=== PATIENT | female | born 1980 | race Caucasian/White ===

== ENCOUNTER 2019-05-04 06:10 | Inpatient (IN) | payer OTHER ==
--- NOTE | 2019-05-04 08:18 | PDOC ---
History of Present Illness - General Chief Complaint: SIRS, Suspected/Possible Stated Complaint: FEVER Time Seen by Provider: 05/04/19 07:26 History Source: [facility] Records, Other (Aide) Exam Limitations: Clinical Condition - History of Present Illness Initial Comments: 05/04/19 08:05 38F with a PMH of spastic diplegic cerebral palsy, cortical blindness, profound MR, seizures g-tube placement, intellectual disabilities who presents to the ER from [facility] for evaluation of fever and tachycardia. Pt is with aide who helps provide history w/ NH papers. [place] papers state that the patient was febrile and tachycardic but does not state any other complaitns. Pt is nonverbal and cannot provide hx. Past History - Past Medical History Allergies/Adverse Reactions: Allergies Allergy/AdvReac Type Severity Reaction Status Date / Time gentamicin Allergy Verified 05/04/19 06:32 Home Medications: Ambulatory Orders Albuterol 0.083% Nebulizer Luly [Ventolin 0.083% Nebulizer Soln -] 1 neb NEB QID 05/04/19 Albuterol 2.5/Ipratropium 0.5 [Duoneb -] 1 amp NEB BID PRN 05/04/19 Baclofen 1 tab GT BID 05/04/19 Baclofen 15 mg GT BID@1200,1700 05/04/19 Budesonide [Pulmicort 0.5 mg Nebulizer -] 1 neb NEB BID 05/04/19 Diazepam 2 mg GT TID 05/04/19 Lansoprazole [Prevacid] 30 mg GT DAILY 05/04/19 Mag Hydrox/Aluminum Hyd/Simeth [Almacone-2 Liquid] 355 ml GT HS 05/04/19 Montelukast Sodium [Singulair] 10 mg GT DAILY 05/04/19 Phenobarbital 16.2 mg GT HS 05/04/19 Phenobarbital 32.4 mg GT AM 05/04/19 Phenobarbital 129.6 mg PO HS 05/04/19 Polyethylene Glycol 3350 [Glycolax] 119 gm GT BID 05/04/19 Zinc Oxide [Desitin] 60 gm TP BID 05/04/19 Amoxicillin/Potassium Clav [Augmentin 500-125 Tablet] 1 each PO BID #8 tablet Anemia: Yes COPD: No Seizures: Yes Other medical history: cerebal palsy, brain damage, m r, Quadriplegia - Surgical History GI Surgery: Yes (g-tube) - Suicide/Smoking/Psychosocial Hx Smoking History: Never smoked Review of Systems - Review of Systems Able to Perform ROS?: No (nonverbal) *Physical Exam - Vital Signs Last Vital Signs Temp Pulse Resp BP Pulse Ox 100.2 F H 111 H 18 95/50 L 97 05/04/19 06:33 05/04/19 06:33 05/04/19 06:33 05/04/19 06:33 05/04/19 06:33 - Physical Exam Comments: 05/04/19 10:37 GENERAL: Well developed, well nourished. Awake. No acute distress. Nonverbal. HEENT: Normocephalic, atraumatic. Hearing grossly normal. Moist mucous membranes. PERRLA, EOMI. No conjunctival pallor. Sclera are non-icteric. NECK: Contracted to the R. Supple. No JVD. CARDIOVASCULAR: Regular rate and rhythm. No murmurs, rubs, or gallops. PULMONARY: LLL crackles. No evidence of respiratory distress. ABDOMINAL: Soft. Non-tender. Non-distended. No rebound or guarding. MUSCULOSKELETAL: Contracted. Limited range of motion at all joints. No bony deformities or tenderness. EXTREMITIES: No cyanosis. No clubbing. No edema. No calf tenderness or swelling. SKIN: Warm and dry. Normal capillary refill. No rashes. No jaundice. NEUROLOGICAL: Alert, awake, appropriate. Cranial nerves 2-12 grossly intact. Normal speech. Gait is normal without ataxia. PSYCHIATRIC: Cooperative. Good eye contact. Appropriate mood and affect. ED Treatment Course - LABORATORY CBC & Chemistry Diagram: 05/08/19 07:20 05/08/19 07:20 Medical Decision Making - Medical Decision Making 05/04/19 11:43 38F with MMP who presents for evaluation of fever and tachycardia. Pt noted to be hypotensive. Septic workup in progress. IV access established but pt pending blood draw. UA negative. CXR negative. Currently being hydrated, on 2nd L NS, IV tylenol, vanc and zosyn for broad spectrum coverage. Will obtain labs after 2nd liter. Pt noted to be more interactive after tylenol and first fluid bolus. Pt admitted for sepsis. *DC/Admit/Observation/Transfer Diagnosis at time of Disposition: Severe sepsis - Discharge Dispostion Condition at time of disposition: Guarded Decision to Admit order: Yes - Referrals - Patient Instructions - Post Discharge Activity
[2019-05-04] MEDS ORDERED: ACETAMINOPHEN INJECTION 100 ML IVPB ONE (08:42)
--- NOTE | 2019-05-04 08:49 | PDOC ---
Attending Attestation - Resident Resident Name: Emiliano Handley - ED Attending Attestation I have performed the following: I have examined & evaluated the patient, The case was reviewed & discussed with the resident, I agree w/resident's findings & plan, Exceptions are as noted - HPI HPI: 38 yo F history MRCP, blindness, seizure disorder, developmental delay, nonverbal at baseline, presenting from [place] for fever. Patient unable to provide any history. - Physicial Exam PE: GENERAL: Awake, alert, and fully oriented, in no acute distress HEAD: No signs of trauma EYES: PERRLA, EOMI, sclera anicteric, conjunctiva clear ENT: Auricles normal inspection, hearing grossly normal, nares patent, oropharynx clear without exudates. Moist mucosa NECK: Normal ROM, supple, no lymphadenopathy, JVD, or masses LUNGS: Breath sounds equal, clear to auscultation bilaterally. No wheezes, and no crackles HEART: Tachycardic with regular rhythm, normal S1 and S2, no murmurs, rubs or gallops ABDOMEN: Soft, nontender, normoactive bowel sounds. No guarding, no rebound. No masses EXTREMITIES: Normal range of motion, no edema. No clubbing or cyanosis. No cords, erythema, or tenderness NEUROLOGICAL: Moving all extremities. Limited by profound MR. SKIN: Warm, dry, normal turgor, no rashes or lesions noted. - Medical Decision Making Pt presents with sepsis, unknown source. Sepsis protocol initiated. Patient was very difficult IV access, ultimately access was obtained to R EJV, but unable to draw blood. Will hydrate with 2L, then reattempt blood draw.
[2019-05-04] MEDS ORDERED: SODIUM CHLORIDE 0.9% 500 ML INFUS.BAG IV ONE (08:51)
[2019-05-04] MEDS ORDERED: ACETAMINOPHEN 1000 MG/100 ML VIAL (NON FORMULARY) IVPB ONE (08:52)
[2019-05-04] MEDS ORDERED: PIPERACILLIN/TAZOB 4.5 GM 4.5 GM in DEXTROSE 5%-WATER 100 ML IVPB ONE (09:14)
[2019-05-04] MEDS ORDERED: VANCOMYCIN 1,000 MG in DEXTROSE 5%-WATER - 250 ML IVPB ONE (09:14)
[2019-05-04] MEDS ORDERED: VANCOMYCIN 1 GRAM (PRE-DOCKED) 1,000 MG/250 ML BAG IVPB ONE (09:52)
[2019-05-04] MEDS ORDERED: PIPERACILLIN/TAZOB 4.5 GM 4.5 GM/100 ML BAG IVPB ONE (09:52)
[2019-05-04 10:19] LABS: URINE APPEARANCE Clear; URINE BILIRUBIN Negative (NEGATIVE); URINE COLOR Yellow; URINE GLUCOSE (UA) Negative (NEGATIVE); URINE KETONE Negative (NEGATIVE); URINE LEUK ESTERASE Negative (NEGATIVE); URINE NITRITE Negative (NEGATIVE); URINE PROTEIN Negative (NEGATIVE); URINE UROBILINOGEN 0.2 mg/dL (0.2-1.0)
[2019-05-04] MEDS ORDERED: SODIUM CHLORIDE 0.9% 1000 ML INFUS.BAG IV ONE (10:39)
[2019-05-04 11:39] LABS: BASO % 0.3 % (0-2.0); EOS % 1.5 % (0-4.5); HEMATOCRIT 30.1 % (32.4-45.2); HEMOGLOBIN 9.5 GM/dL (10.7-15.3); LYMPH % 10.3 % (8-40); MCH 24.7 pg (25.7-33.7); MCHC 31.5 g/dl (32.0-36.0); MEAN CELL VOLUME 78.3 fl (80-96); MEAN PLT VOLUME 9.2 fl (7.5-11.1); MONO % 6.3 % (3.8-10.2); NEUT % 81.6 % (42.8-82.8); PLATELET COUNT 277 K/MM3 (134-434); RBC 3.84 M/mm3 (3.60-5.2); RDW 15.5 % (11.6-15.6); WHITE BLOOD COUNT 14.2 K/mm3 (4.0-10.0)
[2019-05-04 13:53] LABS: VENOUS PC02 38.1 mmHg (38-52); VENOUS PH 7.39 (7.31-7.41)
[2019-05-04 14:19] LABS: ALBUMIN 2.6 g/dl (3.4-5.0); ALK PHOS 114 U/L (45-117); ANION GAP 5 MMOL/L (8-16); BILIRUBIN,TOTAL 0.2 mg/dL (0.2-1); CALCIUM 7.4 mg/dL (8.5-10.1); CHLORIDE 114 mmol/L (98-107); CO2 24 mmol/L (21-32); CREATININE 0.3 mg/dL (0.55-1.3); GLUCOSE,RANDOM 126 mg/dL (74-106); INR 1.2 (0.83-1.09); POTASSIUM 3.4 mmol/L (3.5-5.1); PROTHROMBIN TIME (PATIENT) 14.2 SEC (9.7-13.0); SGOT/AST 26 U/L (15-37); SGPT/ALT 41 U/L (13-61); SODIUM 143 mmol/L (136-145); TOT PROT 5.5 g/dl (6.4-8.2)
--- NOTE | 2019-05-04 16:09 | HP ---
CHIEF COMPLAINT: SIRS+ PCP: Dr. Boles ([facility]) HISTORY OF PRESENT ILLNESS: 38 y/o F with PMHx of Epilepsy, Spastic diplegic cerebral palsy, cortical blindness, Asthma, congenital L hip dislocation, Constipation, Acne vulgaris, alopecia, cholelithiasis, fibroadenosis of the breast, Pneumonitis, Iron def anemia, Gastric ulcer, anoxic brain injury presents from [facility] for fever of 102 degrees, tachycardia to 115. Patient is nonverbal and unable to provide HPI, Aid at bedside provided paperwork but is not the routine director day care center of the patient, thus was unable to provide a detailed hx. Case was discussed with Nurse (Alda Vanegas RN) at [facility] who mentions the patient did not fever during the day and was in her usual state of health, tolerating G- Tube feeds and having regular bowel movements. She mentions that after midnight , a fever and tachycardia were noted prompting a visit to the ED. Nurse mentions hx of aspiration pna requiring hospitalization in [facility]. ER course was notable for: (1) NS 2L Bolus (2) Vanco/Zosyn/Ofirmev (3) Blood Cx/Flu Swab/CXR Recent Travel: PAST MEDICAL HISTORY: As Above PAST SURGICAL HISTORY: G-Tube placement R femur fx repair Social History: Smoking: Denies (As per RN at [facility]) Alcohol: Denies (As per RN at [facility]) Drugs: Denies (As per RN at [facility]) Family History: Patient is nonverbal; RN at [facility] denies FHx Allergies gentamicin Allergy (Verified 05/04/19 06:32) HOME MEDICATIONS: REVIEW OF SYSTEMS Unable to obtain as patient is nonverbal PHYSICAL EXAMINATION Vital Signs - 24 hr 05/04/19 05/04/19 05/04/19 06:33 08:41 14:09 Temperature 100.2 F H 98 F Pulse Rate 111 H 106 H Pulse Rate [ 86 Apical] Respiratory 18 16 Rate Blood Pressure 95/50 L Blood Pressure 92/64 [Left Arm] O2 Sat by Pulse 97 97 94 L Oximetry (%) GENERAL: Awake, alert, Nonverbal NAD, Sitting comfortably looking around the room and smiling HEAD: NCAT EYES: PERRL ENT: MMM NECK: Supple LUNGS: Diminished breath sounds at the bases with significant upper airway noise HEART: RRR, S1 S2 ABDOMEN: Soft, does not grimace to palpation, not distended, + bowel sounds, GTube intact without surrounding erythema/drainage MUSCULOSKELETAL: Limbs contracted EXTREMITIES: 2+ pulses, No peripheral edema. NEUROLOGICAL: Awake, looking around smiling SKIN: Warm, dry, No ulceration noted over posterior back skin Laboratory Results - last 24 hr 05/04/19 05/04/19 05/04/19 09:40 11:24 13:21 WBC 14.2 H RBC 3.84 Hgb 9.5 L Hct 30.1 L MCV 78.3 L MCH 24.7 L MCHC 31.5 L RDW 15.5 Plt Count 277 MPV 9.2 Absolute Neuts (auto) 11.6 H Neutrophils % 81.6 Lymphocytes % 10.3 Monocytes % 6.3 Eosinophils % 1.5 Basophils % 0.3 Nucleated RBC % 0 PT with INR INR PTT (Actin FS) VBG pH POC VBG pCO2 POC VBG pO2 VBG HCO3 VBG O2 Sat (Richie) VBG Base Excess Sodium 143 Potassium 3.4 L Chloride 114 H Carbon Dioxide 24 Anion Gap 5 L BUN 6.0 L Creatinine 0.3 L Est GFR (CKD-EPI)AfAm 168.34 Est GFR (CKD-EPI)NonAf 145.24 Random Glucose 126 H Lactic Acid Calcium 7.4 L Total Bilirubin 0.2 AST 26 ALT 41 Alkaline Phosphatase 114 Creatine Kinase 20 L Troponin I < 0.02 Total Protein 5.5 L Albumin 2.6 L Urine Color Yellow Urine Appearance Clear Urine pH 7.0 Ur Specific [place] 1.015 Urine Protein Negative Urine Glucose (UA) Negative Urine Ketones Negative Urine Blood Negative Urine Nitrite Negative Urine Bilirubin Negative Urine Urobilinogen 0.2 Ur Leukocyte Esterase Negative Influenza A (Rapid) Influenza B (Rapid) 05/04/19 05/04/19 05/04/19 13:21 13:21 13:21 WBC RBC Hgb Hct MCV MCH MCHC RDW Plt Count MPV Absolute Neuts (auto) Neutrophils % Lymphocytes % Monocytes % Eosinophils % Basophils % Nucleated RBC % PT with INR 14.20 H INR 1.20 H PTT (Actin FS) 32.0 VBG pH 7.39 POC VBG pCO2 38.1 POC VBG pO2 70.0 H VBG HCO3 22.6 L VBG O2 Sat (Richie) 93.3 H VBG Base Excess -1.5 Sodium Potassium Chloride Carbon Dioxide Anion Gap BUN Creatinine Est GFR (CKD-EPI)AfAm Est GFR (CKD-EPI)NonAf Random Glucose Lactic Acid 0.6 Calcium Total Bilirubin AST ALT Alkaline Phosphatase Creatine Kinase Troponin I Total Protein Albumin Urine Color Urine Appearance Urine pH Ur Specific [place] Urine Protein Urine Glucose (UA) Urine Ketones Urine Blood Urine Nitrite Urine Bilirubin Urine Urobilinogen Ur Leukocyte Esterase Influenza A (Rapid) Influenza B (Rapid) 05/04/19 13:21 WBC RBC Hgb Hct MCV MCH MCHC RDW Plt Count MPV Absolute Neuts (auto) Neutrophils % Lymphocytes % Monocytes % Eosinophils % Basophils % Nucleated RBC % PT with INR INR PTT (Actin FS) VBG pH POC VBG pCO2 POC VBG pO2 VBG HCO3 VBG O2 Sat (Richie) VBG Base Excess Sodium Potassium Chloride Carbon Dioxide Anion Gap BUN Creatinine Est GFR (CKD-EPI)AfAm Est GFR (CKD-EPI)NonAf Random Glucose Lactic Acid Calcium Total Bilirubin AST ALT Alkaline Phosphatase Creatine Kinase Troponin I Total Protein Albumin Urine Color Urine Appearance Urine pH Ur Specific [place] Urine Protein Urine Glucose (UA) Urine Ketones Urine Blood Urine Nitrite Urine Bilirubin Urine Urobilinogen Ur Leukocyte Esterase Influenza A (Rapid) Negative Influenza B (Rapid) Negative Active Medications Albuterol Sulfate (Ventolin 0.083% Nebulizer Soln -) 1 amp NEB QID RACH Albuterol/Ipratropium (Duoneb -) 1 amp NEB BID PRN PRN Reason: SHORT OF BREATH/WHEEZING Baclofen (Lioresal -) 10 mg GT BID RACH Budesonide (Pulmicort 0.5 Mg Nebulizer -) 1 amp NEB BID RACH Diazepam (Valium -) 2 mg GT TID RACH Lactated Ringer's (Lactated Ringers Solution) 1,000 ml in 1,000 mls @ 100 mls/ hr IV ASDIR RACH Last Admin: 05/04/19 18:14 Dose: 100 mls/hr Piperacillin Sod/Tazobactam (Sod 3.375 gm/ Dextrose) 50 mls @ 100 mls/hr IVPB Q8H-IV RACH; Protocol Piperacillin Sod/Tazobactam (Sod 3.375 gm/ Dextrose) 50 mls @ 100 mls/hr IVPB Q8H-IV RACH; Protocol Stop: 05/05/19 10:29 Last Admin: 05/04/19 18:14 Dose: 100 mls/hr Montelukast Sodium (Singulair -) 10 mg GT DAILY RACH Non-Formulary Medication (Baclofen [Baclofen]) 15 mg GT BID@1200,1700 RACH Non-Formulary Medication (Lansoprazole [Prevacid]) 30 mg GT DAILY RACH Non-Formulary Medication (Mag Hydrox/Aluminum Hyd/Simeth [Almacone-2 Liquid]) 355 ml GT HS RACH Non-Formulary Medication (Phenobarbital [Phenobarbital]) 129.6 mg PO HS RACH Non-Formulary Medication (Zinc Oxide [Desitin]) 60 gm TP BID RACH Phenobarbital (Phenobarbital -) 32.4 mg GT AM RACH Phenobarbital (Phenobarbital Liquid -) 16.2 mg GT HS RACH Vancomycin HCl (Vancomycin (Pre-Docked)) 1,000 mg IVPB DAILY RACH; Protocol Vancomycin HCl (Vancomycin (Pre-Docked)) 1,000 mg IVPB DAILY RACH; Protocol Stop: 05/05/19 10:01 IMAGING: -CXR: A single AP view of the chest reveals an elevated right hemidiaphragm with distended bowel below, rotation to the right with weak inspiration and congestive changes with some questionable atelectasis at the right base. Correlation recommended. ASSESSMENT/PLAN: 38 y/o F with PMHx of Epilepsy, Spastic diplegic cerebral palsy, cortical blindness, Asthma, congenital L hip dislocation, Constipation, Acne vulgaris, alopecia, cholelithiasis, fibroadenosis of the breast, Pneumonitis, Iron def anemia, Gastric ulcer, anoxic brain injury presents from [facility] for fever of 102 degrees, tachycardia to 115. #SIRS+ -Temp at NH 100.2, HR 115; Afebrile in ED with tachycardia resolved -Unclear etiology; CXR does not reveal aspiration or infiltrate, UA not suggestive of UTI, Influenza negative -Blood/sputum/Urine cx pending -Continue Vancomycin 1g Daily, Piperacillin/Tazobactam 3.375 Q8H -Ofirmev -IV Hydration via NS @ 100 mls/hr -Continue to monitor vital signs q4h for signs of infection -ID (Dr. Andre) Consulted -Check BNP, RSV, CRP -Hold GTube feeds due to concern for aspiration pna #Hx of Epilepsy -Continue home meds; Will check levels if any seizure activity noted -Seizure precautions #Hx of Asthma -Continue home dose bronchodilators #FEN -NS @ 100 -Lytes wnl, Replete PRN -Dietary consulted for G-Tube recommendations; No prior G-Tube rec's to compare to #PPx -DVT: Heparin BID Dispo: Admit to med-surg Visit type - Emergency Visit Emergency Visit: Yes ED Registration Date: 05/04/19 Care time: The patient presented to the Emergency Department on the above date and was hospitalized for further evaluation of their emergent condition. - New Patient This patient is new to me today: Yes Date on this admission: 05/07/19 - Critical Care Critical Care patient: No ATTENDING PHYSICIAN STATEMENT I saw and evaluated the patient. I reviewed the resident's note and discussed the case with the resident. I agree with the resident's findings and plan as documented. SUBJECTIVE: OBJECTIVE: ASSESSMENT AND PLAN:
--- NOTE | 2019-05-04 16:19 | PN ---
Teaching Attending Note Name of Resident: Mariam Lim ATTENDING PHYSICIAN STATEMENT I saw and evaluated the patient. I reviewed the resident's note and discussed the case with the resident. I agree with the resident's findings and plan as documented. Seen and examined; please see resident note for further historical information. Hx aspiration recetnly at OSH for aspiration PNA, records pending. She has a PMHx of Epilepsy, Spastic diplegic cerebral palsy, cortical blindness, Asthma, congenital L hip dislocation, Constipation, Acne vulgaris, alopecia, cholelithiasis, fibroadenosis of the breast, Pneumonitis, Iron def anemia, Gastric ulcer, anoxic brain injury presents from [facility] for fever of 102 degrees, tachycardia to 115. Couldnt obtain ROS PMH/PSH/FH/SH per resident note VS, labs, imaging reviewed NAD, supplemental O2, not agitated Trachea midline, no LN Neurological exam difficult without presentation; moves extremities and apparent intact sensorium Abdomen not appearing tender, +BS Couldn't do full psych exam CXR pending CT pending Consults pending (pulmonary, ID) ASSESSMENT AND PLAN: Patient with complex PMH facility resident with PMH aspiration PNA at OSH presents with sepsis assumed 2/2 respiratory source. # Sepsis # Hx aspiration PNA # Hx Epilepsy (Continue all home meds once verified with facility; done by resident. Seizure precautions while inpatient) # Hx Spastic CP with cortical blindness # Hx Asthma (consider steroids, defer to pulmonary) # Hx Constipation # Hx Cholelithiasis (checking RUQ US to r/o biliary contribution given known stones per chart) Broad spectrum abx, fluids, hold feeds overnight and obtain nutrition recs, followup pulmopnary and ID Code status to be verified with facility
[2019-05-04] MEDS ORDERED: PIPERACILLIN/TAZOB 3.375 GM 3.375 GM in DEXTROSE 5%-WATER - 50 ML IVPB SCH (18:00)
[2019-05-04] MEDS: PIPERACILLIN/TAZOB 3.375 GM 3.375 GM in DEXTROSE 5%-WATER - 50 ML IVPB SCH (18:14)
[2019-05-04] MEDS: LACTATED RINGERS SOLUTION 1,000 ML/1,000 ML INFUS.BAG IV SCH (18:14)
[2019-05-04] MEDS ORDERED: PIPERACILLIN/TAZOB 3.375 GM 3.375 GM/50 ML BAG IVPB ONE ×2 (18:15→18:18)
[2019-05-04] MEDS ORDERED: ALBUTEROL SO4 2.5/IPRATROPIUM 0.5 INH SOL 3 ML VIAL.NEB. NEB PRN (19:11)
[2019-05-04 20:36] LABS: N-TERMINAL BNP 162.7 pg/ml (5-125)
[2019-05-04] MEDS ORDERED: BUDESONIDE 0.5 MG/2 ML INH SUSP VIAL NEB SCH (22:00)
[2019-05-04] MEDS ORDERED: PHENOBARBITAL 20 MG/5 ML LIQUID GT SCH (22:00)
[2019-05-04] MEDS ORDERED: PHENOBARBITAL 129.6 MG PO SCH (22:00)
[2019-05-05] MEDS: HEPARIN NA (PORCINE) 5,000 UNITS/ML 1ML VIAL SQ SCH ×3 (00:33→23:12)
[2019-05-05] MEDS: RANITIDINE HCL 150 MG/10 ML UNIT-DOSE GT SCH ×3 (00:33→23:14)
[2019-05-05] MEDS: diazePAM 2 MG TABLET GT SCH ×4 (00:33→23:13)
[2019-05-05] MEDS: BACLOFEN 10 MG TABLET (FP) GT SCH ×3 (00:33→23:13)
[2019-05-05] MEDS: ZINC OXIDE 20% TOPICAL OINTMENT 30 GM TUBE TP SCH ×3 (00:34→23:14)
[2019-05-05] MEDS: PIPERACILLIN/TAZOB 3.375 GM 3.375 GM in DEXTROSE 5%-WATER - 50 ML IVPB SCH ×4 (02:35→17:12)
[2019-05-05] MEDS ORDERED: PHENobarbital 30 MG TABLET GT SCH ×2 (07:00→23:30)
[2019-05-05] MEDS: ALBUTEROL SO4 0.083% IH SOL 2.5 MG/3 ML VIAL.NEB. NEB SCH ×4 (08:24→21:20)
[2019-05-05] MEDS: BUDESONIDE 0.5 MG/2 ML INH SUSP VIAL NEB SCH ×2 (08:24→21:20)
[2019-05-05 08:51] LABS: BASO % 0.7 % (0-2.0); EOS % 6.8 % (0-4.5); HEMATOCRIT 32.6 % (32.4-45.2); HEMOGLOBIN 10.2 GM/dL (10.7-15.3); LYMPH % 21.5 % (8-40); MCH 24.7 pg (25.7-33.7); MCHC 31.3 g/dl (32.0-36.0); MEAN CELL VOLUME 78.8 fl (80-96); MEAN PLT VOLUME 8.9 fl (7.5-11.1); MONO % 6.6 % (3.8-10.2); NEUT % 64.4 % (42.8-82.8); PLATELET COUNT 306 K/MM3 (134-434); RBC 4.14 M/mm3 (3.60-5.2); RDW 15.9 % (11.6-15.6); WHITE BLOOD COUNT 7.3 K/mm3 (4.0-10.0)
[2019-05-05 09:15] LABS: BILIRUBIN,TOTAL 0.2 mg/dL (0.2-1); BLOOD UREA NITROGEN 5.7 mg/dL (7-18); CALCIUM 8.1 mg/dL (8.5-10.1); CREATININE 0.3 mg/dL (0.55-1.3); MAGNESIUM 2.9 mg/dL (1.8-2.4); POTASSIUM 3.8 mmol/L (3.5-5.1); TOT PROT 6.1 g/dl (6.4-8.2)
--- NOTE | 2019-05-05 09:58 | CON.ID ---
Consult Consult Specialty:: infectious diseases Referred by:: Reason for Consultation:: fever,tachycardia,pna - History of Present Illness Chief Complaint: fever History of Present Illness: patient is non verbal from [facility],unable to give history which is taken from the charts 38 y/o F with PMHx of Epilepsy, Spastic diplegic cerebral palsy, cortical blindness, Asthma, congenital L hip dislocation, Constipation, Acne vulgaris, alopecia, cholelithiasis, fibroadenosis of the breast, Pneumonitis, Iron def anemia, Gastric ulcer, anoxic brain injury presents from [facility] for fever of 102 degrees, tachycardia to 115. Case was discussed with Nurse (Alda Vanegas RN) at [facility] who mentions the patient did not fever during the day and was in her usual state of health, tolerating G-Tube feeds and having regular bowel movements. She mentions that after midnight, a fever and tachycardia were noted prompting a visit to the ED. Nurse mentions hx of aspiration pna requiring hospitalization in [facility]. - History Source History Provided By: Medical Record Limitations to Obtaining History: Clinical Condition - Alcohol/Substance Use Hx Alcohol Use: No - Smoking History Smoking history: Never smoked Home Medications - Allergies Allergies/Adverse Reactions: Allergies Allergy/AdvReac Type Severity Reaction Status Date / Time gentamicin Allergy Verified 05/04/19 06:32 - Home Medications Home Medications: Ambulatory Orders Albuterol 0.083% Nebulizer Luly [Ventolin 0.083%] 1 neb NEB QID 05/04/19 Albuterol 2.5/Ipratropium 0.5 [Duoneb -] 1 amp NEB BID PRN 05/04/19 Baclofen 1 tab GT BID 05/04/19 Baclofen 15 mg GT BID@1200,1700 05/04/19 Budesonide [Pulmicort 0.5 mg Nebulizer -] 1 neb NEB BID 05/04/19 Diazepam 2 mg GT TID 05/04/19 Lansoprazole [Prevacid] 30 mg GT DAILY 05/04/19 Mag Hydrox/Aluminum Hyd/Simeth [Almacone-2 Liquid] 355 ml GT HS 05/04/19 Montelukast Sodium [Singulair] 10 mg GT DAILY 05/04/19 Phenobarbital 16.2 mg GT HS 05/04/19 Phenobarbital 32.4 mg GT AM 05/04/19 Phenobarbital 129.6 mg PO HS 05/04/19 Polyethylene Glycol 3350 [Glycolax] 119 gm GT BID 05/04/19 Zinc Oxide [Desitin] 60 gm TP BID 05/04/19 Review of Systems Unable to obtain ROS, reason: unable to obtain Physical Exam Vital Signs: Vital Signs Temperature 98.7 F 05/05/19 06:00 Pulse Rate 97 H 05/05/19 06:00 Respiratory Rate 17 05/05/19 06:00 Blood Pressure 134/71 05/05/19 06:00 O2 Sat by Pulse Oximetry (%) 98 05/04/19 23:00 Constitutional: Yes: No Distress, Calm Cardiovascular: Yes: Regular Rate and Rhythm, S1 Respiratory: Yes: On Nasal O2, Poor Air Entry, Rhonchi Gastrointestinal: Yes: Normal Bowel Sounds, Soft, Other (peg) Musculoskeletal: Yes: WNL Extremities: Yes: Other Neurological: Yes: Alert, Other Psychiatric: Yes: Other Labs: CBC, BMP 05/05/19 08:40 05/05/19 08:40 Imaging - Results Chest X-ray: Report Reviewed, Image Reviewed Assessment/Plan 38 y/o F with PMHx of Epilepsy, Spastic diplegic cerebral palsy, cortical blindness, Asthma, congenital L hip dislocation, Constipation, Acne vulgaris, alopecia, cholelithiasis, fibroadenosis of the breast, Pneumonitis, Iron def anemia, Gastric ulcer, anoxic brain injury presents from [facility] for fever of 102 degrees, tachycardia to 115. sepsis leukocytosis fever asthma plan continue zosyn nutrition asp precautions monitor fever rest as per the team
[2019-05-05] MEDS ORDERED: VANCOMYCIN 1 GM in D5W (PRE-DOCKED) 1,000 MG/250 ML IVPB SCH (10:00)
[2019-05-05] MEDS ORDERED: DEXTROSE 5%-WATER - 50 ML IVPB ONE ×2 (11:00→17:08)
[2019-05-05] MEDS ORDERED: PIPERACILLIN/TAZOBACTAM 3.375 GM VIAL IVPB ONE ×2 (11:00→17:08)
--- NOTE | 2019-05-05 11:14 | CON.PULM ---
Consult Consult Specialty:: PULMONARY Referred by:: PMD Reason for Consultation:: FEVER/ABN CXR - History of Present Illness History of Present Illness: 38F with a PMH of spastic diplegic cerebral palsy, cortical blindness, profound MR, seizures g-tube placement, who presents to the ER from [facility] for evaluation of fever and tachycardia. Pt is with aide who helps provide limited history. Transfer papers state that the patient was febrile and tachycardic. Pt is nonverbal and cannot provide hx. - History Source History Provided By: Medical Record Limitations to Obtaining History: Clinical Condition - Past Medical History CLAIM INVESTIGATOR: Yes: Other (cerebral palsy) Cardio/Vascular: No: AFIB Pulmonary: No: O2 Dependent Gastrointestinal: No: Cancer Hepatobiliary: No: Cirrhosis Renal/: No: Renal Failure ...: No Heme/Onc: Yes: Anemia - Alcohol/Substance Use Hx Alcohol Use: No - Smoking History Smoking history: Never smoked - Social History Usual Living Arrangement: [facility] ADL: Support Services Place of : [facility] History of Recent Travel: No Home Medications - Allergies Allergies/Adverse Reactions: Allergies Allergy/AdvReac Type Severity Reaction Status Date / Time gentamicin Allergy Verified 05/04/19 06:32 - Home Medications Home Medications: Ambulatory Orders Albuterol 0.083% Nebulizer Luly [Ventolin 0.083%] 1 neb NEB QID 05/04/19 Albuterol 2.5/Ipratropium 0.5 [Duoneb -] 1 amp NEB BID PRN 05/04/19 Baclofen 1 tab GT BID 05/04/19 Baclofen 15 mg GT BID@1200,1700 05/04/19 Budesonide [Pulmicort 0.5 mg Nebulizer -] 1 neb NEB BID 05/04/19 Diazepam 2 mg GT TID 05/04/19 Lansoprazole [Prevacid] 30 mg GT DAILY 05/04/19 Mag Hydrox/Aluminum Hyd/Simeth [Almacone-2 Liquid] 355 ml GT HS 05/04/19 Montelukast Sodium [Singulair] 10 mg GT DAILY 05/04/19 Phenobarbital 16.2 mg GT HS 05/04/19 Phenobarbital 32.4 mg GT AM 05/04/19 Phenobarbital 129.6 mg PO HS 05/04/19 Polyethylene Glycol 3350 [Glycolax] 119 gm GT BID 05/04/19 Zinc Oxide [Desitin] 60 gm TP BID 05/04/19 Family Disease History - Family Disease History Family History: Unable to Obtain Review of Systems Unable to obtain ROS, reason: unable to obtain Physical Exam Vital Sings: Vital Signs Temperature 97.3 F L 05/05/19 10:00 Pulse Rate 82 05/05/19 10:00 Respiratory Rate 18 05/05/19 10:00 Blood Pressure 95/62 05/05/19 10:00 O2 Sat by Pulse Oximetry (%) 98 05/04/19 23:00 Constitutional: Yes: No Distress Eyes: Yes: Conjunctiva Clear HENT: Yes: Atraumatic Neck: No: Thyromegaly Cardiovascular: Yes: Regular Rate and Rhythm, S1, S2 Respiratory: Yes: Diminished (right base) Gastrointestinal: Yes: Soft Musculoskeletal: Yes: Other (spastic) Edema: No Labs: CBC, BMP 05/05/19 08:40 05/05/19 08:40 Imaging - Results Chest X-ray: Report Reviewed, Image Reviewed Problem List - Problems (1) Fever Code(s): R50.9 - FEVER, UNSPECIFIED (2) Cerebral palsy Code(s): G80.9 - CEREBRAL PALSY, UNSPECIFIED (3) Tachycardia Code(s): R00.0 - TACHYCARDIA, UNSPECIFIED (4) Blindness Code(s): H54.7 - UNSPECIFIED VISUAL LOSS Assessment/Plan PANCULTURE DIFFICULT TO R/O INFILTRATE ON BASELINE ABNORMAL CXR O2 TO KEEP SAT GREATER THAN 90% UNABLE TO OBTAIN FINGER O2 SAT CONTINUE BASELINE MEDS FOR NOW Carlos VELEZ MD
[2019-05-05] MEDS: LACTATED RINGERS SOLUTION 1,000 ML/1,000 ML INFUS.BAG IV SCH ×2 (11:34→17:12)
[2019-05-05] MEDS: MONTELUKAST NA 10 MG TABLET GT SCH (11:35)
[2019-05-05] MEDS ORDERED: BACLOFEN GT SCH (12:00)
[2019-05-05 14:44] VITALS: BMI 25.2
--- NOTE | 2019-05-05 16:42 | PN ---
Physical Exam: SUBJECTIVE: Patient seen and examined; noted results of pulmonary and ID consults. Continue abx, was weaned to 3L via NC by Dr. Morales this AM. Hemodynamics stable (soft BP but pt. is ~90lbs with normal HR; will try child- sized cuff). Monitoring on floor. Discussed phenobarb dosing with pharmacy and changing orders to their recs; checking phenobarb tox lab per recs. Appreciated. ROS couldn't be reliably obtained due to clinical condition. OBJECTIVE: Vital Signs Period Temp Pulse Resp BP Sys/Waters Pulse Ox Last 24 Hr 96.9 F-98.7 F 75-97 17-20 86-134/55-76 95-98 Patient is awake and alert, mentation at baseline NC AT EOMI PERRLA Trachea midline; no LN, no JVD +BS, difficult to tell if tender but doesn't appear to be very uncomfortable. No neurological changes, no agitation noted Skin exam unchanged with no new rashes or breakdown Lungs with poor effort, ? transmitted upper sounds vs. mild rales RRR s1/2 Laboratory Results - last 24 hr 05/04/19 05/05/19 05/05/19 13:21 08:40 08:40 WBC 7.3 RBC 4.14 Hgb 10.2 L Hct 32.6 MCV 78.8 L MCH 24.7 L MCHC 31.3 L RDW 15.9 H Plt Count 306 MPV 8.9 Absolute Neuts (auto) 4.7 Neutrophils % 64.4 D Lymphocytes % 21.5 D Monocytes % 6.6 Eosinophils % 6.8 H D Basophils % 0.7 Nucleated RBC % 0 Sodium 143 144 Potassium 3.4 L 3.8 Chloride 114 H 114 H Carbon Dioxide 24 22 Anion Gap 5 L 8 BUN 6.0 L 5.7 L Creatinine 0.3 L 0.3 L Est GFR (CKD-EPI)AfAm 168.34 168.34 Est GFR (CKD-EPI)NonAf 145.24 145.24 Random Glucose 126 H 79 Calcium 7.4 L 8.1 L Magnesium 2.9 H Total Bilirubin 0.2 0.2 AST 26 22 ALT 41 39 Alkaline Phosphatase 114 114 Creatine Kinase 20 L Troponin I < 0.02 C-Reactive Protein 13.3 H B-Natriuretic Peptide 162.7 H Total Protein 5.5 L 6.1 L Albumin 2.6 L 3.0 L Active Medications Generic Name Dose Route Start Last Admin Trade Name Freq PRN Reason Stop Dose Admin Albuterol Sulfate 1 amp 05/05/19 08:00 05/05/19 11:32 Ventolin 0.083% Nebulizer Soln - NEB 1 amp RQID RACH Administration Albuterol/Ipratropium 1 amp 05/04/19 19:11 Duoneb - NEB Q12H PRN SHORT OF BREATH/WHEEZING Baclofen 10 mg 05/04/19 22:00 05/05/19 11:35 Lioresal - GT 10 mg BID RACH Administration Budesonide 1 amp 05/05/19 08:00 05/05/19 08:24 Pulmicort 0.5 Mg Nebulizer - NEB 1 amp RBID RACH Administration Diazepam 2 mg 05/04/19 22:00 05/05/19 14:04 Valium - GT 2 mg TID RACH Administration Heparin Sodium (Porcine) 5,000 unit 05/04/19 22:00 05/05/19 11:37 Heparin - SQ 5,000 unit BID RACH Administration Piperacillin Sod/Tazobactam 50 mls @ 100 mls/hr 05/05/19 10:15 05/05/19 11:36 Sod 3.375 gm/ Dextrose IVPB 100 mls/hr Q8H-IV RACH Administration Protocol Lactated Ringer's 1,000 ml in 1,000 mls @ 75 mls/hr 05/05/19 16:22 Lactated Ringers Solution IV ASDIR RACH Montelukast Sodium 10 mg 05/05/19 10:00 05/05/19 11:35 Singulair - GT 10 mg DAILY RACH Administration Multi-Ingredient Ointment 1 applic 05/04/19 22:00 05/05/19 11:35 Zinc Oxide TP 1 applic BID RACH Administration Non-Formulary Medication 355 ml 05/04/19 22:00 Mag Hydrox/Aluminum Hyd/Simeth [Almacone-2 Liquid] GT HS RACH Non-Formulary Medication 129.6 mg 05/04/19 22:00 Phenobarbital [Phenobarbital] PO HS RACH Phenobarbital 32.4 mg 05/05/19 07:00 Phenobarbital - GT AM RACH Phenobarbital 16.2 mg 05/04/19 22:00 Phenobarbital Liquid - GT HS RACH Ranitidine HCl 150 mg 05/04/19 22:00 05/05/19 11:35 Zantac Oral Solution - GT 150 mg BID RACH Administration CT pending Abd US pending ASSESSMENT/PLAN: Patient presents from facility with sepsis with presumed pulmonary origin, r/o GI origin as history of gallstones. Cultures pending; ID and pulmonary medicine following. # Sepsis (Continue LR, abx per ID with zosyn, and followup cultures. Followup CT chest and abd US) # Hx aspiration PNA (followup chest CT to r/o source, CXR result noted) # Hx Epilepsy (Continue all home meds once verified with facility; done by resident. Seizure precautions while inpatient. Phenobarb recs completed per pharmacy) # Hx Spastic CP with cortical blindness (At baseline; cannot provide history) # Hx Asthma (consider steroids, defer to pulmonary) # Hx Constipation # Hx Cholelithiasis (checking RUQ US to r/o biliary contribution given known stones per chart) *Checking ABG as issue getting SpO2 on finger sensor. *Feed orders placed per dietary recs. Code status unchanged Visit type - Emergency Visit Emergency Visit: No - New Patient This patient is new to me today: No - Critical Care Critical Care patient: No
[2019-05-05 19:10] LABS: ARTERIAL BLD GAS O2 SATURATION 98.4 % (95-98); ARTERIAL BLOOD GAS BASE EXCESS -3.9 meq/l (-2-2); ARTERIAL BLOOD GAS PCO2 35.5 mmHg (35-45); ARTERIAL BLOOD GAS PO2 108 mmHg (80-100); ARTERIAL BLOOD GAS pH 7.37 (7.35-7.45)
[2019-05-05 19:25] LABS: ALLENS TEST POSITIVE
[2019-05-05] MEDS ORDERED: PHENYTOIN ORAL SUSP 125 MG/5 ML GT SCH (22:00)
[2019-05-05] MEDS ORDERED: PHENobarbital 30 MG TABLET PO SCH (23:30)
[2019-05-05] MEDS: PHENobarbital 30 MG TABLET GT SCH (23:30)
[2019-05-06] MEDS ORDERED: PIPERACILLIN/TAZOBACTAM 3.375 GM VIAL IVPB ONE ×3 (01:27→17:20)
[2019-05-06] MEDS ORDERED: DEXTROSE 5%-WATER - 50 ML IVPB ONE ×3 (01:28→17:20)
[2019-05-06] MEDS: PIPERACILLIN/TAZOB 3.375 GM 3.375 GM in DEXTROSE 5%-WATER - 50 ML IVPB SCH ×3 (02:16→17:30)
[2019-05-06] MEDS: PHENobarbital 30 MG TABLET GT SCH ×2 (06:14→21:24)
[2019-05-06] MEDS: diazePAM 2 MG TABLET GT SCH ×3 (06:14→21:23)
[2019-05-06] MEDS ORDERED: PHENYTOIN ORAL SUSP 125 MG/5 ML GT SCH (07:00)
[2019-05-06] MEDS: LACTATED RINGERS SOLUTION 1,000 ML/1,000 ML INFUS.BAG IV SCH (07:04)
[2019-05-06] MEDS: BUDESONIDE 0.5 MG/2 ML INH SUSP VIAL NEB SCH ×2 (07:20→19:33)
[2019-05-06] MEDS: ALBUTEROL SO4 0.083% IH SOL 2.5 MG/3 ML VIAL.NEB. NEB SCH ×4 (07:20→19:33)
[2019-05-06] MEDS ORDERED: MAG HYDROX/AL HYDROX/SIMETH 30 ML UNIT-DOSE CUP GT PRN (09:15)
[2019-05-06] MEDS: BACLOFEN 10 MG TABLET (FP) GT SCH ×2 (09:17→21:23)
[2019-05-06] MEDS: MONTELUKAST NA 10 MG TABLET GT SCH (09:17)
[2019-05-06] MEDS: HEPARIN NA (PORCINE) 5,000 UNITS/ML 1ML VIAL SQ SCH ×2 (09:17→21:23)
[2019-05-06] MEDS: RANITIDINE HCL 150 MG/10 ML UNIT-DOSE GT SCH ×2 (09:17→21:23)
[2019-05-06] MEDS: ZINC OXIDE 20% TOPICAL OINTMENT 30 GM TUBE TP SCH ×2 (09:18→21:24)
--- NOTE | 2019-05-06 09:18 | PN ---
Physical Exam: SUBJECTIVE: Patient seen and examined; still no SpO2 with issues but no hypoxia noted from ABG. Will talk to nursing to obtain ear probe if available. CT shows RUL PNA and possible pulmonary vascular congestion. Ground-glass opacities seen indicating possible chronic lung disease. Not tachypnic; borderline blood pressures but not tachycardic. Doesn't appear toxic. Abdominal US doesn't show pathology but markedly limited study; dilated colon but +BS and doesn't appear uncomfortable so not thinking obstructed. Monitor for bowel movement. Thyroid nodule noted; US and chemistries pending OBJECTIVE: Vital Signs Period Temp Pulse Resp BP Sys/Waters Pulse Ox Last 24 Hr 97.1 F-98.8 F 75-93 18-18 86-120/55-65 99 Patient is awake and alert, mentation at baseline. Cannot participate in history NC AT EOMI PERRLA Trachea midline; no LN, no JVD +BS, difficult to tell if tender but doesn't appear to be very uncomfortable. No neurological changes, no agitation noted Skin exam unchanged with no new rashes or breakdown Lungs with poor effort, ? transmitted upper sounds vs. mild rales. pretty much unchanged since yesterday RRR s1/2; no new murmurs Laboratory Results - last 24 hr 05/05/19 18:54 Anticoagulation Therapy No Result Required. Puncture Site Right radial ABG pH 7.37 ABG pCO2 at Pt Temp 35.5 ABG pO2 at Pt Temp 108 H ABG HCO3 20.3 L ABG O2 Sat (Measured) 98.4 H ABG O2 Content 13.7 ABG Base Excess -3.9 L Chele Test Positive O2 Delivery Device No Result Required. Oxygen Flow Rate 2l Vent Mode No Result Required. Vent Rate No Result Required. Mechanical Rate No Result Required. Pressure Support Vent No Result Required. Active Medications Generic Name Dose Route Start Last Admin Trade Name Freq PRN Reason Stop Dose Admin Al Hydroxide/Mg Hydroxide 30 ml 05/06/19 09:15 Mylanta Oral Suspension - GT HS PRN INDIGESTION Albuterol Sulfate 1 amp 05/05/19 08:00 05/06/19 07:20 Ventolin 0.083% Nebulizer Soln - NEB 1 amp RQID RACH Administration Albuterol/Ipratropium 1 amp 05/04/19 19:11 Duoneb - NEB Q12H PRN SHORT OF BREATH/WHEEZING Baclofen 10 mg 05/04/19 22:00 05/05/19 23:13 Lioresal - GT 10 mg BID RACH Administration Budesonide 1 amp 05/05/19 08:00 05/06/19 07:20 Pulmicort 0.5 Mg Nebulizer - NEB 1 amp RBID RACH Administration Diazepam 2 mg 05/04/19 22:00 05/06/19 06:14 Valium - GT 2 mg TID RACH Administration Heparin Sodium (Porcine) 5,000 unit 05/04/19 22:00 05/05/19 23:12 Heparin - SQ 5,000 unit BID RACH Administration Piperacillin Sod/Tazobactam 50 mls @ 100 mls/hr 05/05/19 10:15 05/06/19 02:16 Sod 3.375 gm/ Dextrose IVPB 100 mls/hr Q8H-IV RACH Administration Protocol Lactated Ringer's 1,000 ml in 1,000 mls @ 75 mls/hr 05/05/19 16:22 05/06/19 07:04 Lactated Ringers Solution IV 75 mls/hr ASDIR RACH Administration Montelukast Sodium 10 mg 05/05/19 10:00 05/05/19 11:35 Singulair - GT 10 mg DAILY RACH Administration Multi-Ingredient Ointment 1 applic 05/04/19 22:00 05/05/19 23:14 Zinc Oxide TP 1 applic BID RACH Administration Phenobarbital 30 mg 05/06/19 07:00 05/06/19 06:14 Phenobarbital - GT 30 mg AM RACH Administration Phenobarbital 135 mg 05/05/19 23:30 05/05/19 23:30 Phenobarbital - GT 135 mg HS RACH Administration Ranitidine HCl 150 mg 05/04/19 22:00 05/05/19 23:14 Zantac Oral Solution - GT 150 mg BID RACH Administration CT discussed US discussed AXR pending for AM Echo and BNP pending ASSESSMENT/PLAN: Patient presents with sepsis likely 2/2 RUL pneumonia; pulmonary and ID are following. Possible pulmonary vascular congestion on CT so will be checking echo/BNP. Ground glass opacities noted; chronic ILD? Defer to pulmonary assessment. PRN O2 and monitor on the floor pending infectious workup. # Sepsis 2/2 RUL pneumonia (On abx per ID, monitoring on floor with pulmonary following. Given location and comorbidities assuming aspiration but will check quantiferon. Given possible pulmonary vascular congestion and stable HR, BP will hold fluids but may restart if clinically worsens. Followup blood, sputum cultures and urinary Ag) # Hx Asthma, chronic lung dz (Continue nebs, monteleukast. Ground glass seen on CT may describe further underlying chronic pulmonary pathology. Continue PRN O2, ABG result noted, obtain SPO2 monitor.) # ? Pulmonary Vascular Congestion on CT (check BNP, echo. Stopped fluids) # Hx Epilepsy (Seizure precautions while inpatient. Phenobarb recs completed per pharmacy yesterday. Continue all home AEDs.) # Hx Spastic CP with cortical blindness (At baseline; cannot provide history) # Hx Constipation (Noted; monitor for BM and if none today AXR and consider enema as long as no clinical signs of obstruction) # Hx Cholelithiasis (checking RUQ US to r/o biliary contribution given known stones per chart) Full Code Visit type - Emergency Visit Emergency Visit: No - New Patient This patient is new to me today: No - Critical Care Critical Care patient: No
--- NOTE | 2019-05-06 11:54 | PN ---
Progress Note (short form) - Note Progress Note: PULMONARY VSS/AFEBRILE Constitutional: Yes: No Distress Eyes: Yes: Conjunctiva Clear HENT: Yes: Atraumatic Neck: No: Thyromegaly Cardiovascular: Yes: Regular Rate and Rhythm, S1, S2 Respiratory: Yes: Diminished (right base) Gastrointestinal: Yes: Soft Musculoskeletal: Yes: Other (spastic) Edema: No Labs: REVIEWED Imaging - Results Chest X-ray: Report Reviewed, Image Reviewed Problem List - Problems (1) Fever Code(s): R50.9 - FEVER, UNSPECIFIED (2) Cerebral palsy Code(s): G80.9 - CEREBRAL PALSY, UNSPECIFIED (3) Tachycardia Code(s): R00.0 - TACHYCARDIA, UNSPECIFIED (4) Blindness Code(s): H54.7 - UNSPECIFIED VISUAL LOSS Assessment/Plan PANCULTURE NO GROWTH THUS FAR DIFFICULT TO R/O INFILTRATE ON BASELINE ABNORMAL CXR O2 TO KEEP SAT GREATER THAN 90% UNABLE TO OBTAIN FINGER O2 SAT CONTINUE BASELINE MEDS FOR NOW R ROSIE GARCIA Problem List - Problems (1) Fever Code(s): R50.9 - FEVER, UNSPECIFIED (2) Cerebral palsy Code(s): G80.9 - CEREBRAL PALSY, UNSPECIFIED (3) Tachycardia Code(s): R00.0 - TACHYCARDIA, UNSPECIFIED (4) Blindness Code(s): H54.7 - UNSPECIFIED VISUAL LOSS
[2019-05-06 13:21] LABS: N-TERMINAL BNP 367.4 pg/ml (5-125)
--- NOTE | 2019-05-06 14:39 | PN ---
Progress Note, Physician History of Present Illness: stable no new issues breathing better - Current Medication List Current Medications: Active Medications Al Hydroxide/Mg Hydroxide (Mylanta Oral Suspension -) 30 ml GT HS PRN PRN Reason: INDIGESTION Albuterol Sulfate (Ventolin 0.083% Nebulizer Soln -) 1 amp NEB RQID [facility] Last Admin: 05/06/19 11:36 Dose: 1 amp Albuterol/Ipratropium (Duoneb -) 1 amp NEB Q12H PRN PRN Reason: SHORT OF BREATH/WHEEZING Baclofen (Lioresal -) 10 mg GT BID [facility] Last Admin: 05/06/19 09:17 Dose: 10 mg Budesonide (Pulmicort 0.5 Mg Nebulizer -) 1 amp NEB RBID [facility] Last Admin: 05/06/19 07:20 Dose: 1 amp Diazepam (Valium -) 2 mg GT TID [facility] Last Admin: 05/06/19 14:33 Dose: 2 mg Heparin Sodium (Porcine) (Heparin -) 5,000 unit SQ BID [facility] Last Admin: 05/06/19 09:17 Dose: 5,000 unit Piperacillin Sod/Tazobactam (Sod 3.375 gm/ Dextrose) 50 mls @ 100 mls/hr IVPB Q8H-IV RACH; Protocol Last Admin: 05/06/19 09:18 Dose: 100 mls/hr Montelukast Sodium (Singulair -) 10 mg GT DAILY [facility] Last Admin: 05/06/19 09:17 Dose: 10 mg Multi-Ingredient Ointment (Zinc Oxide) 1 applic TP BID [facility] Last Admin: 05/06/19 09:18 Dose: 1 applic Phenobarbital (Phenobarbital -) 30 mg GT AM [facility] Last Admin: 05/06/19 06:14 Dose: 30 mg Phenobarbital (Phenobarbital -) 135 mg GT HS [facility] Last Admin: 05/05/19 23:30 Dose: 135 mg Ranitidine HCl (Zantac Oral Solution -) 150 mg GT BID [facility] Last Admin: 05/06/19 09:17 Dose: 150 mg - Objective Vital Signs: Vital Signs Temperature 97.1 F L 05/06/19 09:09 Pulse Rate 82 05/06/19 09:09 Respiratory Rate 18 05/06/19 09:09 Blood Pressure 97/65 05/06/19 09:09 O2 Sat by Pulse Oximetry (%) 99 05/05/19 21:00 Constitutional: Yes: No Distress, Calm Cardiovascular: Yes: S1, S2 Respiratory: Yes: On Nasal O2, Poor Air Entry Gastrointestinal: Yes: Normal Bowel Sounds, Soft Musculoskeletal: Yes: WNL Extremities: Yes: Other Neurological: Yes: Other Labs: CBC, BMP 05/05/19 08:40 05/05/19 08:40 INR, PTT INR 1.20 (0.83-1.09) H 05/04/19 13:21 Assessment/Plan 38 y/o F with PMHx of Epilepsy, Spastic diplegic cerebral palsy, cortical blindness, Asthma, congenital L hip dislocation, Constipation, Acne vulgaris, alopecia, cholelithiasis, fibroadenosis of the breast, Pneumonitis, Iron def anemia, Gastric ulcer, anoxic brain injury presents from [facility] for fever of 102 degrees, tachycardia to 115. sepsis leukocytosis fever asthma (1) Fever Code(s): R50.9 - FEVER, UNSPECIFIED (2) Cerebral palsy Code(s): G80.9 - CEREBRAL PALSY, UNSPECIFIED (3) Tachycardia Code(s): R00.0 - TACHYCARDIA, UNSPECIFIED (4) Blindness Code(s): H54.7 - UNSPECIFIED VISUAL LOSS plan continue zosyn nutrition asp precautions monitor fever rest as per the team
--- NOTE | 2019-05-06 17:08 | EKG ---
Test Reason : Blood Pressure : / mmHG Vent. Rate : 087 BPM Atrial Rate : 087 BPM P-R Int : 146 ms QRS Dur : 068 ms QT Int : 350 ms P-R-T Axes : 034 -22 -17 degrees QTc Int : 421 ms NORMAL SINUS RHYTHM LOW VOLTAGE QRS CANNOT RULE OUT ANTERIOR INFARCT , AGE UNDETERMINED NONSPECIFIC ST AND T WAVE ABNORMALITY ABNORMAL ECG NO PREVIOUS ECGS AVAILABLE Confirmed by ALICIA MORA MD ([id number]) on 05/06/2019 5:07:48 PM Referred By: Confirmed By:ALICIA MORA MD
[2019-05-07] MEDS ORDERED: PIPERACILLIN/TAZOBACTAM 3.375 GM VIAL IVPB ONE ×3 (00:47→17:04)
[2019-05-07] MEDS: PIPERACILLIN/TAZOB 3.375 GM 3.375 GM in DEXTROSE 5%-WATER - 50 ML IVPB SCH ×3 (01:49→17:36)
[2019-05-07] MEDS: diazePAM 2 MG TABLET GT SCH ×3 (05:12→21:08)
[2019-05-07] MEDS: PHENobarbital 30 MG TABLET GT SCH ×2 (06:29→21:08)
[2019-05-07] MEDS: ALBUTEROL SO4 0.083% IH SOL 2.5 MG/3 ML VIAL.NEB. NEB SCH ×4 (08:00→20:45)
[2019-05-07] MEDS: BUDESONIDE 0.5 MG/2 ML INH SUSP VIAL NEB SCH ×2 (08:00→20:45)
[2019-05-07 08:03] LABS: HEMATOCRIT 33.6 % (32.4-45.2); HEMOGLOBIN 10.6 GM/dL (10.7-15.3); MCH 24.7 pg (25.7-33.7); MCHC 31.4 g/dl (32.0-36.0); MEAN CELL VOLUME 78.4 fl (80-96); RBC 4.29 M/mm3 (3.60-5.2); RDW 15.7 % (11.6-15.6); WHITE BLOOD COUNT 5.5 K/mm3 (4.0-10.0)
[2019-05-07 08:05] LABS: BLOOD UREA NITROGEN 7.6 mg/dL (7-18); CALCIUM 9.1 mg/dL (8.5-10.1); CREATININE 0.4 mg/dL (0.55-1.3); MAGNESIUM 2.1 mg/dL (1.8-2.4); POTASSIUM 4.1 mmol/L (3.5-5.1)
--- NOTE | 2019-05-07 10:25 | PN ---
Progress Note, Physician History of Present Illness: stable much calmer breathing well - Current Medication List Current Medications: Active Medications Al Hydroxide/Mg Hydroxide (Mylanta Oral Suspension -) 30 ml GT HS PRN PRN Reason: INDIGESTION Albuterol Sulfate (Ventolin 0.083% Nebulizer Soln -) 1 amp NEB RQID [facility] Last Admin: 05/07/19 08:00 Dose: 1 amp Albuterol/Ipratropium (Duoneb -) 1 amp NEB Q12H PRN PRN Reason: SHORT OF BREATH/WHEEZING Baclofen (Lioresal -) 10 mg GT BID [facility] Last Admin: 05/06/19 21:23 Dose: 10 mg Budesonide (Pulmicort 0.5 Mg Nebulizer -) 1 amp NEB RBID [facility] Last Admin: 05/07/19 08:00 Dose: 1 amp Diazepam (Valium -) 2 mg GT TID [facility] Last Admin: 05/07/19 05:12 Dose: 2 mg Heparin Sodium (Porcine) (Heparin -) 5,000 unit SQ BID [facility] Last Admin: 05/06/19 21:23 Dose: 5,000 unit Piperacillin Sod/Tazobactam (Sod 3.375 gm/ Dextrose) 50 mls @ 100 mls/hr IVPB Q8H-IV RACH; Protocol Last Admin: 05/07/19 01:49 Dose: 100 mls/hr Montelukast Sodium (Singulair -) 10 mg GT DAILY [facility] Last Admin: 05/06/19 09:17 Dose: 10 mg Multi-Ingredient Ointment (Zinc Oxide) 1 applic TP BID [facility] Last Admin: 05/06/19 21:24 Dose: 1 applic Phenobarbital (Phenobarbital -) 30 mg GT AM [facility] Last Admin: 05/07/19 06:29 Dose: 30 mg Phenobarbital (Phenobarbital -) 135 mg GT HS [facility] Last Admin: 05/06/19 21:24 Dose: 135 mg Ranitidine HCl (Zantac Oral Solution -) 150 mg GT BID [facility] Last Admin: 05/06/19 21:23 Dose: 150 mg - Objective Vital Signs: Vital Signs Temperature 98.3 F 05/07/19 06:00 Pulse Rate 69 05/07/19 06:00 Respiratory Rate 18 05/07/19 06:00 Blood Pressure 93/49 L 05/07/19 06:00 O2 Sat by Pulse Oximetry (%) 100 05/06/19 21:00 Constitutional: Yes: No Distress, Calm Cardiovascular: Yes: S1, S2 Respiratory: Yes: Regular, CTA Bilaterally Gastrointestinal: Yes: Normal Bowel Sounds, Soft Musculoskeletal: Yes: WNL Extremities: Yes: WNL Neurological: Yes: Alert, Oriented Psychiatric: Yes: Alert, Other Labs: CBC, BMP 05/07/19 07:20 05/07/19 07:20 INR, PTT INR 1.20 (0.83-1.09) H 05/04/19 13:21 Assessment/Plan 38 y/o F with PMHx of Epilepsy, Spastic diplegic cerebral palsy, cortical blindness, Asthma, congenital L hip dislocation, Constipation, Acne vulgaris, alopecia, cholelithiasis, fibroadenosis of the breast, Pneumonitis, Iron def anemia, Gastric ulcer, anoxic brain injury presents from [facility] for fever of 102 degrees, tachycardia to 115. sepsis leukocytosis fever asthma (1) Fever Code(s): R50.9 - FEVER, UNSPECIFIED (2) Cerebral palsy Code(s): G80.9 - CEREBRAL PALSY, UNSPECIFIED (3) Tachycardia Code(s): R00.0 - TACHYCARDIA, UNSPECIFIED (4) Blindness Code(s): H54.7 - UNSPECIFIED VISUAL LOSS plan continue zosyn will d/w the team nutrition rest as per the team asp precautions
[2019-05-07 10:44] LABS: MEAN PLT VOLUME 10.3 fl (7.5-11.1); PLATELET COUNT 245 K/MM3 (134-434); PLATELET ESTIMATE ADEQUATE
[2019-05-07 10:45] LABS: BASO % 1.2 % (0-2.0); EOS % 13.5 % (0-4.5); LYMPH % 32.8 % (8-40); MONO % 9.3 % (3.8-10.2); NEUT % 43.2 % (42.8-82.8)
[2019-05-07] MEDS ORDERED: DEXTROSE 5%-WATER - 50 ML IVPB ONE ×2 (11:07→17:05)
[2019-05-07] MEDS: MONTELUKAST NA 10 MG TABLET GT SCH (11:10)
[2019-05-07] MEDS: BACLOFEN 10 MG TABLET (FP) GT SCH ×2 (11:10→21:07)
[2019-05-07] MEDS: HEPARIN NA (PORCINE) 5,000 UNITS/ML 1ML VIAL SQ SCH ×2 (11:10→21:08)
[2019-05-07] MEDS: RANITIDINE HCL 150 MG/10 ML UNIT-DOSE GT SCH ×2 (11:11→21:08)
--- NOTE | 2019-05-07 12:05 | PN ---
Progress Note (short form) - Note Progress Note: PULMONARY Pt nonverbal. No fevers recorded. Vital Signs Period Temp Pulse Resp BP Sys/Waters Pulse Ox Last 24 Hr 98 F-98.7 F 69-92 18-18 93-107/49-71 100 Gen: NAD at rest Heart: RRR Lung: decreased breath sounds at the bases Abd: soft, nontender Ext: no edema CBC, BMP 05/07/19 07:20 05/07/19 07:20 Active Medications Al Hydroxide/Mg Hydroxide (Mylanta Oral Suspension -) 30 ml GT HS PRN PRN Reason: INDIGESTION Albuterol Sulfate (Ventolin 0.083% Nebulizer Soln -) 1 amp NEB RQID [facility] Last Admin: 05/07/19 08:00 Dose: 1 amp Albuterol/Ipratropium (Duoneb -) 1 amp NEB Q12H PRN PRN Reason: SHORT OF BREATH/WHEEZING Baclofen (Lioresal -) 10 mg GT BID [facility] Last Admin: 05/07/19 11:10 Dose: 10 mg Budesonide (Pulmicort 0.5 Mg Nebulizer -) 1 amp NEB RBID [facility] Last Admin: 05/07/19 08:00 Dose: 1 amp Diazepam (Valium -) 2 mg GT TID [facility] Last Admin: 05/07/19 05:12 Dose: 2 mg Heparin Sodium (Porcine) (Heparin -) 5,000 unit SQ BID [facility] Last Admin: 05/07/19 11:10 Dose: 5,000 unit Piperacillin Sod/Tazobactam (Sod 3.375 gm/ Dextrose) 50 mls @ 100 mls/hr IVPB Q8H-IV RACH; Protocol Last Admin: 05/07/19 11:10 Dose: 100 mls/hr Montelukast Sodium (Singulair -) 10 mg GT DAILY [facility] Last Admin: 05/07/19 11:10 Dose: 10 mg Multi-Ingredient Ointment (Zinc Oxide) 1 applic TP BID [facility] Last Admin: 05/06/19 21:24 Dose: 1 applic Phenobarbital (Phenobarbital -) 30 mg GT AM [facility] Last Admin: 05/07/19 06:29 Dose: 30 mg Phenobarbital (Phenobarbital -) 135 mg GT HS [facility] Last Admin: 05/06/19 21:24 Dose: 135 mg Ranitidine HCl (Zantac Oral Solution -) 150 mg GT BID [facility] Last Admin: 05/07/19 11:11 Dose: 150 mg A/P Pneumonia Sepsis Asthma Seizure Disorder Cerebral Palsy Mental Retardation Functional Quadriplegia - continue antibiotics per ID - aspiration precautions - inhaled bronchodilators - O2 to keep SpO2 >90% - enteral feeds - DVT prophylaxis
--- NOTE | 2019-05-07 16:16 | ECHO ---
Name: DANIEL MENDENHALL Exam:Adult Echocardiogram Study Date: 05/07/2019 08:40 AM Age: 38 yrs Reason For Study: pulmonary vasc. Height: 49 in Weight: 86 lb BSA: 1.1 m2 MMode/2D Measurements & Calculations IVSd: 0.89 cm Ao root diam: 2.3 cm LVIDd: 3.0 cm LA dimension: 2.3 cm LVIDs: 1.8 cm LVPWd: 0.79 cm EDV(Teich): 35.3 ml LVOT diam: 2.0 cm ESV(Teich): 9.4 ml Doppler Measurements & Calculations MV E max salas: 95.6 cm/sec Ao V2 max: 123.5 cm/sec MV A max salas: 94.1 cm/sec Ao max P.1 mmHg MV E/A: 1.0 MV dec time: 0.18 sec DARIN(V,D): 2.1 cm2 LV V1 max P.7 mmHg TR max salas: 209.7 cm/sec LV V1 max: 81.5 cm/sec TR max P.6 mmHg PA V2 max: 81.4 cm/sec Med Peak E' Salas: 5.4 cm/sec PA max P.7 mmHg Med E/e': 17.6 Lat Peak E' Salas: 7.7 cm/sec Lat E/e': 12.4 Procedure A complete two-dimensional transthoracic echocardiogram was performed (2D, M-mode, Doppler and color flow Doppler). Left Ventricle The left ventricle is normal in size. Left ventricular systolic function is normal. Ejection Fraction = 65- 70%. No regional wall motion abnormalities noted. Right Ventricle The right ventricle is normal size. The right ventricular systolic function is normal. Atria The left atrial size is normal. Right atrial size is normal. Mitral Valve The mitral valve is normal in structure and function. There is mild mitral regurgitation. Tricuspid Valve The tricuspid valve is normal in structure and function. There is mild tricuspid regurgitation. Aortic Valve The aortic valve is normal in structure and function. No aortic regurgitation is present. Pulmonic Valve The pulmonic valve is not well visualized. Great Vessels The aortic root is normal size. Pericardium/Pleura There is no pericardial effusion. Interpretation Summary The left ventricle is normal in size. Left ventricular systolic function is normal. No regional wall motion abnormalities noted. Ejection Fraction = 65-70%. The right ventricular systolic function is normal. The left atrial size is normal. Right atrial size is normal. There is mild mitral regurgitation. There is mild tricuspid regurgitation. There is no pericardial effusion. Previous study is not available for comparison Vinnie Barajas MD 05/07/2019 04:16 PM
[2019-05-07] MEDS: ZINC OXIDE 20% TOPICAL OINTMENT 30 GM TUBE TP SCH ×2 (16:42→21:09)
--- NOTE | 2019-05-07 17:35 | PN ---
Physical Exam: SUBJECTIVE: Patient seen and examined at bedside. Pt is nonvebal. OBJECTIVE: Vital Signs Period Temp Pulse Resp BP Sys/Waters Pulse Ox Last 24 Hr 98 F-98.6 F 69-92 18-18 93-107/49-71 100 Gen: nonverbal, no apparent distress HEENT: NCAT EOMI Neck:Supple no JVD Cardio: rrr, normal s1s2, no mrg Pulm: limited exam Abd: soft, no guarding Laboratory Results - last 24 hr 05/06/19 05/07/19 05/07/19 10:29 07:20 07:20 WBC 5.5 RBC 4.29 Hgb 10.6 L Hct 33.6 MCV 78.4 L MCH 24.7 L MCHC 31.4 L RDW 15.7 H Plt Count 245 MPV 10.3 D Absolute Neuts (auto) 2.4 Neutrophils % 43.2 D Lymphocytes % 32.8 D Monocytes % 9.3 Eosinophils % 13.5 H D Basophils % 1.2 Nucleated RBC % 0 Platelet Estimate Adequate Platelet Comment No clumping noted Sodium 143 Potassium 4.1 Chloride 106 Carbon Dioxide 28 Anion Gap 8 BUN 7.6 Creatinine 0.4 L Est GFR (CKD-EPI)AfAm 153.14 Est GFR (CKD-EPI)NonAf 132.13 Random Glucose 90 Calcium 9.1 Magnesium 2.1 TSH 1.78 Active Medications Generic Name Dose Route Start Last Admin Trade Name Freq PRN Reason Stop Dose Admin Al Hydroxide/Mg Hydroxide 30 ml 05/06/19 09:15 Mylanta Oral Suspension - GT HS PRN INDIGESTION Albuterol Sulfate 1 amp 05/05/19 08:00 05/07/19 12:00 Ventolin 0.083% Nebulizer Soln - NEB 1 amp RQID RACH Administration Albuterol/Ipratropium 1 amp 05/04/19 19:11 Duoneb - NEB Q12H PRN SHORT OF BREATH/WHEEZING Baclofen 10 mg 05/04/19 22:00 05/07/19 11:10 Lioresal - GT 10 mg BID RACH Administration Budesonide 1 amp 05/05/19 08:00 05/07/19 08:00 Pulmicort 0.5 Mg Nebulizer - NEB 1 amp RBID RACH Administration Diazepam 2 mg 05/04/19 22:00 05/07/19 13:57 Valium - GT 2 mg TID RACH Administration Heparin Sodium (Porcine) 5,000 unit 05/04/19 22:00 05/07/19 11:10 Heparin - SQ 5,000 unit BID RACH Administration Piperacillin Sod/Tazobactam 50 mls @ 100 mls/hr 05/05/19 10:15 05/07/19 11:10 Sod 3.375 gm/ Dextrose IVPB 100 mls/hr Q8H-IV RACH Administration Protocol Montelukast Sodium 10 mg 05/05/19 10:00 05/07/19 11:10 Singulair - GT 10 mg DAILY RACH Administration Multi-Ingredient Ointment 1 applic 05/04/19 22:00 05/07/19 16:42 Zinc Oxide TP 1 applic BID RACH Administration Phenobarbital 30 mg 05/06/19 07:00 05/07/19 06:29 Phenobarbital - GT 30 mg AM RACH Administration Phenobarbital 135 mg 05/05/19 23:30 05/06/19 21:24 Phenobarbital - GT 135 mg HS RACH Administration Ranitidine HCl 150 mg 05/04/19 22:00 05/07/19 11:11 Zantac Oral Solution - GT 150 mg BID RACH Administration ASSESSMENT/PLAN: Pt is a 38 y/o F with PMH Epilepsy, Spastic diplegic cerebral palsy, cortical blindness, Asthma, congenital L hip dislocation, Constipation, Acne vulgaris, alopecia, cholelithiasis, fibroadenosis of the breast, Pneumonitis, Iron def anemia, Gastric ulcer, anoxic brain injury presents from [facility] with sepsis. # Sepsis 2/2 RUL pneumonia -On abx per ID -pulm on board -f/u quantiferon. -f/u BCx, sputum Cx, urinary Ag # Hx Asthma, chronic lung dz -nebs, monteleukast -Ground glass seen on CT. ? chronic pulmonary pathology -O2 to maintain O2 sat > 90% # ? Pulmonary Vascular Congestion on CT -BNP very mildly elevated -echo: EF 60% # Hx Epilepsy -Phenobarb recs completed per pharmacy yesterday -Continue all home AEDs # Hx Spastic CP with cortical blindness -At baseline -cannot provide history # Hx Constipation -monitor for BM # Hx Cholelithiasis -RUQ US limited. No stones noted Visit type - Emergency Visit Emergency Visit: No - New Patient This patient is new to me today: Yes Date on this admission: 05/07/19 - Critical Care Critical Care patient: No - Discharge Referral Referred to [facility] No ATTENDING PHYSICIAN STATEMENT I saw and evaluated the patient. I reviewed the resident's note and discussed the case with the resident. I agree with the resident's findings and plan as documented. SUBJECTIVE: OBJECTIVE: ASSESSMENT AND PLAN:
--- NOTE | 2019-05-07 19:04 | PN ---
Teaching Attending Note Name of Resident: Rafael Wilson ATTENDING PHYSICIAN STATEMENT I saw and evaluated the patient. I reviewed the resident's note and discussed the case with the resident. I agree with the resident's findings and plan as documented. Seen and examined; agree with resident note aside from as supplimented by myself. Personally verified all [place]one historical information and exam findings. 10 sys ROS couldn't be accurately completed VS, labs, imaging reviewed NAD, AAO NC AT EOMI PERRLA RRR s1/2 no mgr NT ND +BS CN2-12 wnl, no fnd Normal mood, appropriate behavior All diagnostics reviewed (EKG, imaging); [facility]. ASSESSMENT AND PLAN: Continues to improve but requires inpatient care; reviewed resident documentation. Problems include: -Sepsis 2/2 RUL pna -Hx Asthma -R/O Vascular congestion -Epilepsy -Spastic chest pain -Constipation history -Hx cholelithiasis Agree with plan as documented in resident documentation Continue inpatient monitoring with DC planning
[2019-05-08] MEDS ORDERED: PIPERACILLIN/TAZOBACTAM 3.375 GM VIAL IVPB ONE ×2 (02:44→11:29)
[2019-05-08] MEDS ORDERED: DEXTROSE 5%-WATER - 50 ML IVPB ONE ×2 (02:44→11:30)
[2019-05-08] MEDS: PIPERACILLIN/TAZOB 3.375 GM 3.375 GM in DEXTROSE 5%-WATER - 50 ML IVPB SCH ×2 (02:57→11:35)
[2019-05-08] MEDS: PHENobarbital 30 MG TABLET GT SCH ×2 (06:12→22:09)
[2019-05-08] MEDS: diazePAM 2 MG TABLET GT SCH ×3 (06:12→22:09)
[2019-05-08 07:58] LABS: BASO % 1.4 % (0-2.0); EOS % 13.5 % (0-4.5); HEMATOCRIT 30.7 % (32.4-45.2); HEMOGLOBIN 9.9 GM/dL (10.7-15.3); LYMPH % 32.6 % (8-40); MCH 25.2 pg (25.7-33.7); MCHC 32.1 g/dl (32.0-36.0); MEAN CELL VOLUME 78.3 fl (80-96); MEAN PLT VOLUME 9.6 fl (7.5-11.1); MONO % 11.7 % (3.8-10.2); NEUT % 40.8 % (42.8-82.8); PLATELET COUNT 270 K/MM3 (134-434); RBC 3.92 M/mm3 (3.60-5.2); RDW 15.9 % (11.6-15.6); RETICULOCYTES 1.13 % (0.5-1.5); WHITE BLOOD COUNT 5.1 K/mm3 (4.0-10.0)
[2019-05-08] MEDS: BUDESONIDE 0.5 MG/2 ML INH SUSP VIAL NEB SCH ×2 (08:25→21:10)
[2019-05-08] MEDS: ALBUTEROL SO4 0.083% IH SOL 2.5 MG/3 ML VIAL.NEB. NEB SCH ×4 (08:25→21:10)
[2019-05-08 08:26] LABS: BLOOD UREA NITROGEN 8.5 mg/dL (7-18); CALCIUM 9.3 mg/dL (8.5-10.1); CREATININE 0.3 mg/dL (0.55-1.3); POTASSIUM 4.3 mmol/L (3.5-5.1)
--- NOTE | 2019-05-08 09:15 | PN ---
Teaching Attending Note Name of Resident: Rafael Wilson ATTENDING PHYSICIAN STATEMENT I saw and evaluated the patient. I reviewed the resident's note and discussed the case with the resident. I agree with the resident's findings and plan as documented. Seen and examined; agree with resident note aside from as supplimented by myself. Personally verified all [place]one historical information and exam findings. VS, labs, imaging reviewed NAD, AAO, restisting NC AT EOMI PERRLA RRR s1/2 no mgr NT ND +BS CN2-12 wnl, no fnd Normal mood, appropriate behavior All diagnostics reviewed (EKG, imaging); final reports per [employer]. ASSESSMENT AND PLAN: Agree with plan and problem list as documented in resident note DC plan noted Remains stable; discussing with subspecialty services and planning for followup 30 mins spent
[2019-05-08] MEDS: BACLOFEN 10 MG TABLET (FP) GT SCH ×2 (11:35→22:09)
[2019-05-08] MEDS: RANITIDINE HCL 150 MG/10 ML UNIT-DOSE GT SCH ×2 (11:35→22:08)
[2019-05-08] MEDS: HEPARIN NA (PORCINE) 5,000 UNITS/ML 1ML VIAL SQ SCH ×2 (11:35→22:08)
[2019-05-08] MEDS: MONTELUKAST NA 10 MG TABLET GT SCH (11:35)
[2019-05-08] MEDS: ZINC OXIDE 20% TOPICAL OINTMENT 30 GM TUBE TP SCH ×2 (11:36→22:09)
--- NOTE | 2019-05-08 12:35 | PN ---
Progress Note, Physician History of Present Illness: stable much calmer breathing well - Current Medication List Current Medications: Active Medications Al Hydroxide/Mg Hydroxide (Mylanta Oral Suspension -) 30 ml GT HS PRN PRN Reason: INDIGESTION Albuterol Sulfate (Ventolin 0.083% Nebulizer Soln -) 1 amp NEB RQID [facility] Last Admin: 05/08/19 08:25 Dose: 1 amp Albuterol/Ipratropium (Duoneb -) 1 amp NEB Q12H PRN PRN Reason: SHORT OF BREATH/WHEEZING Baclofen (Lioresal -) 10 mg GT BID [facility] Last Admin: 05/08/19 11:35 Dose: 10 mg Budesonide (Pulmicort 0.5 Mg Nebulizer -) 1 amp NEB RBID [facility] Last Admin: 05/08/19 08:25 Dose: 1 amp Diazepam (Valium -) 2 mg GT TID [facility] Last Admin: 05/08/19 06:12 Dose: 2 mg Heparin Sodium (Porcine) (Heparin -) 5,000 unit SQ BID [facility] Last Admin: 05/08/19 11:35 Dose: 5,000 unit Piperacillin Sod/Tazobactam (Sod 3.375 gm/ Dextrose) 50 mls @ 100 mls/hr IVPB Q8H-IV RACH; Protocol Last Admin: 05/08/19 11:35 Dose: 100 mls/hr Montelukast Sodium (Singulair -) 10 mg GT DAILY [facility] Last Admin: 05/08/19 11:35 Dose: 10 mg Multi-Ingredient Ointment (Zinc Oxide) 1 applic TP BID [facility] Last Admin: 05/08/19 11:36 Dose: 1 applic Phenobarbital (Phenobarbital -) 30 mg GT AM [facility] Last Admin: 05/08/19 06:12 Dose: 30 mg Phenobarbital (Phenobarbital -) 135 mg GT HS [facility] Last Admin: 05/07/19 21:08 Dose: 135 mg Ranitidine HCl (Zantac Oral Solution -) 150 mg GT BID [facility] Last Admin: 05/08/19 11:35 Dose: 150 mg - Objective Vital Signs: Vital Signs Temperature 98.3 F 05/08/19 10:00 Pulse Rate 80 05/08/19 12:23 Respiratory Rate 18 05/08/19 10:00 Blood Pressure 90/55 L 05/08/19 10:00 O2 Sat by Pulse Oximetry (%) 98 05/08/19 12:23 Constitutional: Yes: No Distress, Calm Cardiovascular: Yes: S1, S2 Respiratory: Yes: Regular, CTA Bilaterally Gastrointestinal: Yes: Normal Bowel Sounds, Soft Musculoskeletal: Yes: WNL Extremities: Yes: WNL Neurological: Yes: Alert, Oriented Psychiatric: Yes: Alert, Oriented Labs: CBC, BMP 05/08/19 07:20 05/08/19 07:20 INR, PTT INR 1.20 (0.83-1.09) H 05/04/19 13:21 Assessment/Plan 38 y/o F with PMHx of Epilepsy, Spastic diplegic cerebral palsy, cortical blindness, Asthma, congenital L hip dislocation, Constipation, Acne vulgaris, alopecia, cholelithiasis, fibroadenosis of the breast, Pneumonitis, Iron def anemia, Gastric ulcer, anoxic brain injury presents from [facility] for fever of 102 degrees, tachycardia to 115. sepsis leukocytosis fever asthma (1) Fever Code(s): R50.9 - FEVER, UNSPECIFIED (2) Cerebral palsy Code(s): G80.9 - CEREBRAL PALSY, UNSPECIFIED (3) Tachycardia Code(s): R00.0 - TACHYCARDIA, UNSPECIFIED (4) Blindness Code(s): H54.7 - UNSPECIFIED VISUAL LOSS plan can switch to augmentin for another 4 days resp support rest as per the team
[2019-05-08 13:04] LABS: PLATELET ESTIMATE NORMAL
--- NOTE | 2019-05-08 13:29 | PN ---
Progress Note (short form) - Note Progress Note: PULMONARY Pt nonverbal. No fevers recorded. Vital Signs Period Temp Pulse Resp BP Sys/Waters Pulse Ox Last 24 Hr 98.3 F-99.0 F 70-94 18-18 90-97/55-61 98-99 Gen: NAD at rest Heart: RRR Lung: decreased breath sounds at the bases Abd: soft, nontender Ext: no edema CBC, BMP 05/08/19 07:20 05/08/19 07:20 Active Medications Al Hydroxide/Mg Hydroxide (Mylanta Oral Suspension -) 30 ml GT HS PRN PRN Reason: INDIGESTION Albuterol Sulfate (Ventolin 0.083% Nebulizer Soln -) 1 amp NEB RQID [facility] Last Admin: 05/08/19 08:25 Dose: 1 amp Albuterol/Ipratropium (Duoneb -) 1 amp NEB Q12H PRN PRN Reason: SHORT OF BREATH/WHEEZING Baclofen (Lioresal -) 10 mg GT BID [facility] Last Admin: 05/08/19 11:35 Dose: 10 mg Budesonide (Pulmicort 0.5 Mg Nebulizer -) 1 amp NEB RBID [facility] Last Admin: 05/08/19 08:25 Dose: 1 amp Diazepam (Valium -) 2 mg GT TID [facility] Last Admin: 05/08/19 06:12 Dose: 2 mg Heparin Sodium (Porcine) (Heparin -) 5,000 unit SQ BID [facility] Last Admin: 05/08/19 11:35 Dose: 5,000 unit Piperacillin Sod/Tazobactam (Sod 3.375 gm/ Dextrose) 50 mls @ 100 mls/hr IVPB Q8H-IV RACH; Protocol Last Admin: 05/08/19 11:35 Dose: 100 mls/hr Montelukast Sodium (Singulair -) 10 mg GT DAILY [facility] Last Admin: 05/08/19 11:35 Dose: 10 mg Multi-Ingredient Ointment (Zinc Oxide) 1 applic TP BID [facility] Last Admin: 05/08/19 11:36 Dose: 1 applic Phenobarbital (Phenobarbital -) 30 mg GT AM [facility] Last Admin: 05/08/19 06:12 Dose: 30 mg Phenobarbital (Phenobarbital -) 135 mg GT HS [facility] Last Admin: 05/07/19 21:08 Dose: 135 mg Ranitidine HCl (Zantac Oral Solution -) 150 mg GT BID [facility] Last Admin: 05/08/19 11:35 Dose: 150 mg A/P Pneumonia Sepsis Asthma Seizure Disorder Cerebral Palsy Mental Retardation Functional Quadriplegia - continue antibiotics per ID - aspiration precautions - inhaled bronchodilators - O2 to keep SpO2 >90% - enteral feeds - DVT prophylaxis
--- NOTE | 2019-05-08 17:25 | PN ---
Physical Exam: SUBJECTIVE: Patient seen and examined at bedside. No acute events. Pt looks much better. OBJECTIVE: Vital Signs Period Temp Pulse Resp BP Sys/Waters Pulse Ox Last 24 Hr 98.3 F-99.0 F 70-94 18-20 90-97/55-61 98-99 Gen: nonverbal, no apparent distress HEENT: NCAT EOMI Neck:Supple no JVD Cardio: rrr, normal s1s2, faint systolic murmur Pulm: limited exam Abd: soft, no guarding Laboratory Results - last 24 hr 05/05/19 05/06/19 05/08/19 19:30 12:38 07:20 WBC 5.1 RBC 3.92 Hgb 9.9 L Hct 30.7 L MCV 78.3 L MCH 25.2 L MCHC 32.1 RDW 15.9 H Plt Count 270 MPV 9.6 Absolute Neuts (auto) 2.1 Neutrophils % 40.8 L Lymphocytes % 32.6 Monocytes % 11.7 H Eosinophils % 13.5 H Basophils % 1.4 Nucleated RBC % 0 Platelet Estimate Normal Retic Count 1.13 Sodium Potassium Chloride Carbon Dioxide Anion Gap BUN Creatinine Est GFR (CKD-EPI)AfAm Est GFR (CKD-EPI)NonAf Random Glucose Calcium Free T3 2.5 Total T3 92.00 Phenobarbital 23 05/08/19 07:20 WBC RBC Hgb Hct MCV MCH MCHC RDW Plt Count MPV Absolute Neuts (auto) Neutrophils % Lymphocytes % Monocytes % Eosinophils % Basophils % Nucleated RBC % Platelet Estimate Retic Count Sodium 140 Potassium 4.3 Chloride 106 Carbon Dioxide 27 Anion Gap 6 L BUN 8.5 Creatinine 0.3 L Est GFR (CKD-EPI)AfAm 168.34 Est GFR (CKD-EPI)NonAf 145.24 Random Glucose 86 Calcium 9.3 Free T3 Total T3 Phenobarbital Active Medications Generic Name Dose Route Start Last Admin Trade Name Freq PRN Reason Stop Dose Admin Al Hydroxide/Mg Hydroxide 30 ml 05/06/19 09:15 Mylanta Oral Suspension - GT HS PRN INDIGESTION Albuterol Sulfate 1 amp 05/05/19 08:00 05/08/19 08:25 Ventolin 0.083% Nebulizer Soln - NEB 1 amp RQID RACH Administration Albuterol/Ipratropium 1 amp 05/04/19 19:11 Duoneb - NEB Q12H PRN SHORT OF BREATH/WHEEZING Baclofen 10 mg 05/04/19 22:00 05/08/19 11:35 Lioresal - GT 10 mg BID RACH Administration Budesonide 1 amp 05/05/19 08:00 05/08/19 08:25 Pulmicort 0.5 Mg Nebulizer - NEB 1 amp RBID RACH Administration Diazepam 2 mg 05/04/19 22:00 05/08/19 14:50 Valium - GT 2 mg TID RACH Administration Heparin Sodium (Porcine) 5,000 unit 05/04/19 22:00 05/08/19 11:35 Heparin - SQ 5,000 unit BID RACH Administration Piperacillin Sod/Tazobactam 50 mls @ 100 mls/hr 05/05/19 10:15 05/08/19 11:35 Sod 3.375 gm/ Dextrose IVPB 100 mls/hr Q8H-IV RACH Administration Protocol Montelukast Sodium 10 mg 05/05/19 10:00 05/08/19 11:35 Singulair - GT 10 mg DAILY RACH Administration Multi-Ingredient Ointment 1 applic 05/04/19 22:00 05/08/19 11:36 Zinc Oxide TP 1 applic BID RACH Administration Phenobarbital 30 mg 05/06/19 07:00 05/08/19 06:12 Phenobarbital - GT 30 mg AM RACH Administration Phenobarbital 135 mg 05/05/19 23:30 05/07/19 21:08 Phenobarbital - GT 135 mg HS RACH Administration Ranitidine HCl 150 mg 05/04/19 22:00 05/08/19 11:35 Zantac Oral Solution - GT 150 mg BID RACH Administration ASSESSMENT/PLAN: Pt is a 38 y/o F with PMH Epilepsy, Spastic diplegic cerebral palsy, cortical blindness, Asthma, congenital L hip dislocation, Constipation, Acne vulgaris, alopecia, cholelithiasis, fibroadenosis of the breast, Pneumonitis, Iron def anemia, Gastric ulcer, anoxic brain injury presents from [facility] with sepsis. # Sepsis 2/2 RUL pneumonia: improving -On abx per ID -pulm on board -quantiferon pending -BCx, sputum Cx, urinary Ag negative so far # Hx Asthma, chronic lung dz -nebs, monteleukast -Ground glass seen on CT. ? chronic pulmonary pathology -O2 to maintain O2 sat > 90% -pre/post noted. O2 sat 98% on room air # ? Pulmonary Vascular Congestion on CT -BNP very mildly elevated -echo: EF 60% # Hx Epilepsy -Phenobarb recs completed per pharmacy yesterday -Continue all home AEDs # Hx Spastic CP with cortical blindness -At baseline -cannot provide history # Hx Constipation -monitor for BM # Hx Cholelithiasis -RUQ US limited. No stones noted Visit type - Emergency Visit Emergency Visit: No - New Patient This patient is new to me today: No - Critical Care Critical Care patient: No ATTENDING PHYSICIAN STATEMENT I saw and evaluated the patient. I reviewed the resident's note and discussed the case with the resident. I agree with the resident's findings and plan as documented. SUBJECTIVE: OBJECTIVE: ASSESSMENT AND PLAN:
[2019-05-08] MEDS ORDERED: AMOX TR/POT CLAV 500MG/125MG TABLETS (FP) PO SCH (17:30)
[2019-05-09] MEDS: diazePAM 2 MG TABLET GT SCH ×2 (06:13→15:18)
[2019-05-09] MEDS: PHENobarbital 30 MG TABLET GT SCH (06:13)
[2019-05-09] MEDS: BUDESONIDE 0.5 MG/2 ML INH SUSP VIAL NEB SCH (08:55)
[2019-05-09] MEDS: ALBUTEROL SO4 0.083% IH SOL 2.5 MG/3 ML VIAL.NEB. NEB SCH ×3 (08:56→16:25)
[2019-05-09] MEDS ORDERED: PT OWN MED DRAWER 7, Y5N ONE (09:04)
[2019-05-09] MEDS: HEPARIN NA (PORCINE) 5,000 UNITS/ML 1ML VIAL SQ SCH (09:41)
[2019-05-09] MEDS: BACLOFEN 10 MG TABLET (FP) GT SCH (09:41)
[2019-05-09] MEDS: RANITIDINE HCL 150 MG/10 ML UNIT-DOSE GT SCH (09:41)
[2019-05-09] MEDS: MONTELUKAST NA 10 MG TABLET GT SCH (09:41)
[2019-05-09] MEDS: AMOX TR/POTASSIUM CLAVULANATE 600 MG/5 ML GT SCH ×2 (09:41→17:11)
[2019-05-09] MEDS: ZINC OXIDE 20% TOPICAL OINTMENT 30 GM TUBE TP SCH (09:42)
--- NOTE | 2019-05-09 10:04 | PN ---
Teaching Attending Note Name of Resident: Rafael Wilson ATTENDING PHYSICIAN STATEMENT I saw and evaluated the patient. I reviewed the resident's note and discussed the case with the resident. I agree with the resident's findings and plan as documented with exceptions below. SUBJECTIVE: Patient seen and examined. Non verbal, unable to assess for ROS. OBJECTIVE: Vital Signs Period Temp Pulse Resp BP Sys/Waters Pulse Ox Last 24 Hr 98.2 F-99.3 F 80-108 16-20 91-120/58-74 97-98 Intake & Output 05/06/19 05/07/19 05/08/19 05/09/19 23:59 23:59 23:59 23:59 Intake Total 2230 1720 1370 370 Output Total 450 Balance 1780 1720 1370 370 GEneral: sitting in bed, breathing comfortably, no acute distress Chest: good air entry bilaterally, no rales or wheezing appreciated Abdomen:Soft, NT Extremities: contractures Home Medications Medication Instructions Recorded Albuterol 0.083% Nebulizer Luly 1 neb NEB QID 05/04/19 [Ventolin 0.083% Nebulizer Soln -] Albuterol 2.5/Ipratropium 0.5 1 amp NEB BID PRN 05/04/19 [Duoneb -] Baclofen 1 tab GT BID 05/04/19 Baclofen 15 mg GT BID@1200,1700 05/04/19 Budesonide [Pulmicort 0.5 mg 1 neb NEB BID 05/04/19 Nebulizer -] Diazepam 2 mg GT TID 05/04/19 Lansoprazole [Prevacid] 30 mg GT DAILY 05/04/19 Mag Hydrox/Aluminum Hyd/Simeth 355 ml GT HS 05/04/19 [Almacone-2 Liquid] Montelukast Sodium [Singulair] 10 mg GT DAILY 05/04/19 Phenobarbital 16.2 mg GT HS 05/04/19 Phenobarbital 32.4 mg GT AM 05/04/19 Phenobarbital 129.6 mg PO HS 05/04/19 Polyethylene Glycol 3350 [Glycolax] 119 gm GT BID 05/04/19 Zinc Oxide [Desitin] 60 gm TP BID 05/04/19 Amoxicillin/Potassium Clav 1 each PO BID #8 tablet 05/08/19 [Augmentin 500-125 Tablet] Active Medications Al Hydroxide/Mg Hydroxide (Mylanta Oral Suspension -) 30 ml GT HS PRN PRN Reason: INDIGESTION Albuterol Sulfate (Ventolin 0.083% Nebulizer Soln -) 1 amp NEB RQID [facility] Last Admin: 05/09/19 08:56 Dose: 1 amp Albuterol/Ipratropium (Duoneb -) 1 amp NEB Q12H PRN PRN Reason: SHORT OF BREATH/WHEEZING Amoxicillin/Clavulanate Potassium (Augmentin 600 Mg/5 Ml Oral Suspension -) 600 mg GT BID@0800,1730 [facility] Last Admin: 05/09/19 09:41 Dose: 600 mg Baclofen (Lioresal -) 10 mg GT BID [facility] Last Admin: 05/09/19 09:41 Dose: 10 mg Budesonide (Pulmicort 0.5 Mg Nebulizer -) 1 amp NEB RBID [facility] Last Admin: 05/09/19 08:55 Dose: 1 amp Diazepam (Valium -) 2 mg GT TID [facility] Last Admin: 05/09/19 06:13 Dose: 2 mg Heparin Sodium (Porcine) (Heparin -) 5,000 unit SQ BID [facility] Last Admin: 05/09/19 09:41 Dose: 5,000 unit Montelukast Sodium (Singulair -) 10 mg GT DAILY [facility] Last Admin: 05/09/19 09:41 Dose: 10 mg Multi-Ingredient Ointment (Zinc Oxide) 1 applic TP BID [facility] Last Admin: 05/09/19 09:42 Dose: 1 applic Phenobarbital (Phenobarbital -) 30 mg GT AM [facility] Last Admin: 05/09/19 06:13 Dose: 30 mg Phenobarbital (Phenobarbital -) 135 mg GT HS [facility] Last Admin: 05/08/19 22:09 Dose: 135 mg Ranitidine HCl (Zantac Oral Solution -) 150 mg GT BID [facility] Last Admin: 05/09/19 09:41 Dose: 150 mg Laboratory Results - last 24 hr 05/06/19 05/08/19 12:38 07:20 Plt Count 270 MPV 9.6 Platelet Estimate Normal TB Test (QFT) Nil 0.07 TB Test (QFT) Mitogen 8.55 TB Test (QFT) Antigen 0.09 TB Test (QFT) Negative TB Positive Criteria Microbiology 05/04/19 11:24 Blood - Peripheral Venous Blood Culture - Preliminary NO GROWTH OBTAINED AFTER 96 HOURS, INCUBATION TO CONTINUE FOR 1 DAYS. 05/04/19 11:24 Blood - Peripheral Venous Blood Culture - Preliminary NO GROWTH OBTAINED AFTER 96 HOURS, INCUBATION TO CONTINUE FOR 1 DAYS. 05/06/19 14:39 Urine For Antigen Detection Legionella Antigen - Final 05/06/19 14:39 Urine For Antigen Detection Streptococcus pneumoniae Antigen (M - Final 05/04/19 09:40 Urine - Urine - Catheterized Urine Culture - Final NO GROWTH OBTAINED CXR and CT chest results reviewed ASSESSMENT AND PLAN: 38 yof with PMhx of Epilepsy, Spastic diplegic cerebral palsy, cortical blindness, Asthma, congenital L hip dislocation, Constipation, Acne vulgaris, alopecia, cholelithiasis, fibroadenosis of the breast, Pneumonitis, Iron def anemia, Gastric ulcer, anoxic brain injury, from [facility] admitted with SIRS. -RUL aspiration PNA with sepsis -Spastic diplegic cerebral palsy -Epilepsy -Cortical blindness -Asthma -Congenital Left hip dislocation -Constipation -Acne vulgaris -Alopecia -Cholelithiasis -Fibroadenosis of the breast -Pneumonitis -Iron Def Anemia -Gastric ulcer -Anoxic brain injury Plan: Clinically improved. Saturating well on room air. Afbrile, ID/pulmonary input noted. Augmentin for 4 more days. Tube feeds resumed D/c back to [facility] today. Discussed with nursing.
--- NOTE | 2019-05-09 12:17 | PN ---
Progress Note, Physician History of Present Illness: stable no new issues - Current Medication List Current Medications: Active Medications Al Hydroxide/Mg Hydroxide (Mylanta Oral Suspension -) 30 ml GT HS PRN PRN Reason: INDIGESTION Albuterol Sulfate (Ventolin 0.083% Nebulizer Soln -) 1 amp NEB RQID [facility] Last Admin: 05/09/19 11:38 Dose: 1 amp Albuterol/Ipratropium (Duoneb -) 1 amp NEB Q12H PRN PRN Reason: SHORT OF BREATH/WHEEZING Amoxicillin/Clavulanate Potassium (Augmentin 600 Mg/5 Ml Oral Suspension -) 600 mg GT BID@0800,1730 [facility] Last Admin: 05/09/19 09:41 Dose: 600 mg Baclofen (Lioresal -) 10 mg GT BID [facility] Last Admin: 05/09/19 09:41 Dose: 10 mg Budesonide (Pulmicort 0.5 Mg Nebulizer -) 1 amp NEB RBID [facility] Last Admin: 05/09/19 08:55 Dose: 1 amp Diazepam (Valium -) 2 mg GT TID [facility] Last Admin: 05/09/19 06:13 Dose: 2 mg Heparin Sodium (Porcine) (Heparin -) 5,000 unit SQ BID [facility] Last Admin: 05/09/19 09:41 Dose: 5,000 unit Montelukast Sodium (Singulair -) 10 mg GT DAILY [facility] Last Admin: 05/09/19 09:41 Dose: 10 mg Multi-Ingredient Ointment (Zinc Oxide) 1 applic TP BID [facility] Last Admin: 05/09/19 09:42 Dose: 1 applic Phenobarbital (Phenobarbital -) 30 mg GT AM [facility] Last Admin: 05/09/19 06:13 Dose: 30 mg Phenobarbital (Phenobarbital -) 135 mg GT HS [facility] Last Admin: 05/08/19 22:09 Dose: 135 mg Ranitidine HCl (Zantac Oral Solution -) 150 mg GT BID [facility] Last Admin: 05/09/19 09:41 Dose: 150 mg - Objective Vital Signs: Vital Signs Temperature 98 F 05/09/19 09:00 Pulse Rate 108 H 05/09/19 09:00 Respiratory Rate 20 05/09/19 09:00 Blood Pressure 106/61 05/09/19 09:00 O2 Sat by Pulse Oximetry (%) 97 05/09/19 09:00 Constitutional: Yes: No Distress, Calm Cardiovascular: Yes: S1, S2 Respiratory: Yes: Regular, CTA Bilaterally Gastrointestinal: Yes: Normal Bowel Sounds, Soft Musculoskeletal: Yes: Other Extremities: Yes: Other Neurological: Yes: Alert, Other Psychiatric: Yes: Other Labs: CBC, BMP 05/08/19 07:20 05/08/19 07:20 INR, PTT INR 1.20 (0.83-1.09) H 05/04/19 13:21 Assessment/Plan 38 y/o F with PMHx of Epilepsy, Spastic diplegic cerebral palsy, cortical blindness, Asthma, congenital L hip dislocation, Constipation, Acne vulgaris, alopecia, cholelithiasis, fibroadenosis of the breast, Pneumonitis, Iron def anemia, Gastric ulcer, anoxic brain injury presents from [facility] for fever of 102 degrees, tachycardia to 115. sepsis leukocytosis fever asthma (1) Fever Code(s): R50.9 - FEVER, UNSPECIFIED (2) Cerebral palsy Code(s): G80.9 - CEREBRAL PALSY, UNSPECIFIED (3) Tachycardia Code(s): R00.0 - TACHYCARDIA, UNSPECIFIED (4) Blindness Code(s): H54.7 - UNSPECIFIED VISUAL LOSS plan continue current mgmt rest as per the team
--- NOTE | 2019-05-09 14:30 | PN ---
Progress Note, Physician History of Present Illness: pulmonary awake,comfortable,-resp distress - Current Medication List Current Medications: Active Medications Al Hydroxide/Mg Hydroxide (Mylanta Oral Suspension -) 30 ml GT HS PRN PRN Reason: INDIGESTION Albuterol Sulfate (Ventolin 0.083% Nebulizer Soln -) 1 amp NEB RQID [facility] Last Admin: 05/09/19 11:38 Dose: 1 amp Albuterol/Ipratropium (Duoneb -) 1 amp NEB Q12H PRN PRN Reason: SHORT OF BREATH/WHEEZING Amoxicillin/Clavulanate Potassium (Augmentin 600 Mg/5 Ml Oral Suspension -) 600 mg GT BID@0800,1730 [facility] Last Admin: 05/09/19 09:41 Dose: 600 mg Baclofen (Lioresal -) 10 mg GT BID [facility] Last Admin: 05/09/19 09:41 Dose: 10 mg Budesonide (Pulmicort 0.5 Mg Nebulizer -) 1 amp NEB RBID [facility] Last Admin: 05/09/19 08:55 Dose: 1 amp Diazepam (Valium -) 2 mg GT TID [facility] Last Admin: 05/09/19 06:13 Dose: 2 mg Heparin Sodium (Porcine) (Heparin -) 5,000 unit SQ BID [facility] Last Admin: 05/09/19 09:41 Dose: 5,000 unit Montelukast Sodium (Singulair -) 10 mg GT DAILY [facility] Last Admin: 05/09/19 09:41 Dose: 10 mg Multi-Ingredient Ointment (Zinc Oxide) 1 applic TP BID [facility] Last Admin: 05/09/19 09:42 Dose: 1 applic Phenobarbital (Phenobarbital -) 30 mg GT AM [facility] Last Admin: 05/09/19 06:13 Dose: 30 mg Phenobarbital (Phenobarbital -) 135 mg GT HS [facility] Last Admin: 05/08/19 22:09 Dose: 135 mg Ranitidine HCl (Zantac Oral Solution -) 150 mg GT BID [facility] Last Admin: 05/09/19 09:41 Dose: 150 mg - Objective Vital Signs: Vital Signs Temperature 98 F 05/09/19 09:00 Pulse Rate 108 H 05/09/19 09:00 Respiratory Rate 20 05/09/19 09:00 Blood Pressure 106/61 05/09/19 09:00 O2 Sat by Pulse Oximetry (%) 97 05/09/19 09:00 Constitutional: Yes: Calm, Thin, Other (non-verbal) Eyes: Yes: WNL HENT: Yes: WNL Neck: Yes: WNL Cardiovascular: Yes: Regular Rate and Rhythm, S1, S2 Respiratory: Yes: Diminished Gastrointestinal: Yes: Normal Bowel Sounds, Soft Labs: CBC, BMP Problem List - Problems (1) Pneumonia Code(s): J18.9 - PNEUMONIA, UNSPECIFIED ORGANISM (2) Cerebral palsy Code(s): G80.9 - CEREBRAL PALSY, UNSPECIFIED (3) Fever Code(s): R50.9 - FEVER, UNSPECIFIED (4) Tachycardia Code(s): R00.0 - TACHYCARDIA, UNSPECIFIED Assessment/Plan A/P Pneumonia clinically improving Sepsis improved Asthma Seizure Disorder Cerebral Palsy Mental Retardation Functional Quadriplegia - antibiotics per ID - aspiration precautions - inhaled bronchodilators - O2 to keep SpO2 >90% - enteral feeds - DVT prophylaxis DR PAULA
[2019-05-09 15:02] VITALS: BP 135/75; PULSE 106; TEMP 99.6
--- NOTE | 2019-07-04 17:28 | DS ---
Physical Exam: SUBJECTIVE: Patient seen and examined, non verabl unable to do review of symptoms. OBJECTIVE: PHYSICAL EXAM GEneral: sitting in bed, breathing comfortably, no acute distress Chest: good air entry bilaterally, no rales or wheezing appreciated neck: soft, CVS:S1S2 regular HEENT: PERRLA, moist mucous membrane Abdomen:Soft, NT Extremities: contractures LABS Laboratory Tests 05/04/19 05/04/19 05/04/19 09:40 11:24 13:21 WBC 14.2 H RBC 3.84 Hgb 9.5 L Hct 30.1 L MCV 78.3 L MCH 24.7 L MCHC 31.5 L RDW 15.5 Plt Count 277 MPV 9.2 Absolute Neuts (auto) 11.6 H Neutrophils % 81.6 Lymphocytes % 10.3 Monocytes % 6.3 Eosinophils % 1.5 Basophils % 0.3 Nucleated RBC % 0 Platelet Estimate Platelet Comment Retic Count PT with INR INR PTT (Actin FS) Anticoagulation Therapy Puncture Site ABG pH ABG pCO2 at Pt Temp ABG pO2 at Pt Temp ABG HCO3 ABG O2 Sat (Measured) ABG O2 Content ABG Base Excess Chele Test VBG pH POC VBG pCO2 POC VBG pO2 VBG HCO3 VBG O2 Sat (Richie) VBG Base Excess O2 Delivery Device Oxygen Flow Rate Vent Mode Vent Rate Mechanical Rate Pressure Support Vent Sodium 143 Potassium 3.4 L Chloride 114 H Carbon Dioxide 24 Anion Gap 5 L BUN 6.0 L Creatinine 0.3 L Est GFR (CKD-EPI)AfAm 168.34 Est GFR (CKD-EPI)NonAf 145.24 Random Glucose 126 H Lactic Acid Calcium 7.4 L Magnesium Total Bilirubin 0.2 AST 26 ALT 41 Alkaline Phosphatase 114 Creatine Kinase 20 L Troponin I < 0.02 C-Reactive Protein 13.3 H B-Natriuretic Peptide 162.7 H Total Protein 5.5 L Albumin 2.6 L TSH Free T3 Total T3 Urine Color Yellow Urine Appearance Clear Urine pH 7.0 Ur Specific [place] 1.015 Urine Protein Negative Urine Glucose (UA) Negative Urine Ketones Negative Urine Blood Negative Urine Nitrite Negative Urine Bilirubin Negative Urine Urobilinogen 0.2 Ur Leukocyte Esterase Negative Phenobarbital Influenza A (Rapid) Influenza B (Rapid) TB Test (QFT) Nil TB Test (QFT) Mitogen TB Test (QFT) Antigen TB Test (QFT) TB Positive Criteria 0905/04/19 05/04/19 13:21 13:21 13:21 WBC RBC Hgb Hct MCV MCH MCHC RDW Plt Count MPV Absolute Neuts (auto) Neutrophils % Lymphocytes % Monocytes % Eosinophils % Basophils % Nucleated RBC % Platelet Estimate Platelet Comment Retic Count PT with INR 14.20 H INR 1.20 H PTT (Actin FS) 32.0 Anticoagulation Therapy Puncture Site ABG pH ABG pCO2 at Pt Temp ABG pO2 at Pt Temp ABG HCO3 ABG O2 Sat (Measured) ABG O2 Content ABG Base Excess Chele Test VBG pH 7.39 POC VBG pCO2 38.1 POC VBG pO2 70.0 H VBG HCO3 22.6 L VBG O2 Sat (Richie) 93.3 H VBG Base Excess -1.5 O2 Delivery Device Oxygen Flow Rate Vent Mode Vent Rate Mechanical Rate Pressure Support Vent Sodium Potassium Chloride Carbon Dioxide Anion Gap BUN Creatinine Est GFR (CKD-EPI)AfAm Est GFR (CKD-EPI)NonAf Random Glucose Lactic Acid 0.6 Calcium Magnesium Total Bilirubin AST ALT Alkaline Phosphatase Creatine Kinase Troponin I C-Reactive Protein B-Natriuretic Peptide Total Protein Albumin TSH Free T3 Total T3 Urine Color Urine Appearance Urine pH Ur Specific [place] Urine Protein Urine Glucose (UA) Urine Ketones Urine Blood Urine Nitrite Urine Bilirubin Urine Urobilinogen Ur Leukocyte Esterase Phenobarbital Influenza A (Rapid) Influenza B (Rapid) TB Test (QFT) Nil TB Test (QFT) Mitogen TB Test (QFT) Antigen TB Test (QFT) TB Positive Criteria 05/04/19 05/05/19 05/05/19 13:21 08:40 08:40 WBC 7.3 RBC 4.14 Hgb 10.2 L Hct 32.6 MCV 78.8 L MCH 24.7 L MCHC 31.3 L RDW 15.9 H Plt Count 306 MPV 8.9 Absolute Neuts (auto) 4.7 Neutrophils % 64.4 D Lymphocytes % 21.5 D Monocytes % 6.6 Eosinophils % 6.8 H D Basophils % 0.7 Nucleated RBC % 0 Platelet Estimate Platelet Comment Retic Count PT with INR INR PTT (Actin FS) Anticoagulation Therapy Puncture Site ABG pH ABG pCO2 at Pt Temp ABG pO2 at Pt Temp ABG HCO3 ABG O2 Sat (Measured) ABG O2 Content ABG Base Excess Chele Test VBG pH POC VBG pCO2 POC VBG pO2 VBG HCO3 VBG O2 Sat (Richie) VBG Base Excess O2 Delivery Device Oxygen Flow Rate Vent Mode Vent Rate Mechanical Rate Pressure Support Vent Sodium 144 Potassium 3.8 Chloride 114 H Carbon Dioxide 22 Anion Gap 8 BUN 5.7 L Creatinine 0.3 L Est GFR (CKD-EPI)AfAm 168.34 Est GFR (CKD-EPI)NonAf 145.24 Random Glucose 79 Lactic Acid Calcium 8.1 L Magnesium 2.9 H Total Bilirubin 0.2 AST 22 ALT 39 Alkaline Phosphatase 114 Creatine Kinase Troponin I C-Reactive Protein B-Natriuretic Peptide Total Protein 6.1 L Albumin 3.0 L TSH Free T3 Total T3 Urine Color Urine Appearance Urine pH Ur Specific [place] Urine Protein Urine Glucose (UA) Urine Ketones Urine Blood Urine Nitrite Urine Bilirubin Urine Urobilinogen Ur Leukocyte Esterase Phenobarbital Influenza A (Rapid) Negative Influenza B (Rapid) Negative TB Test (QFT) Nil TB Test (QFT) Mitogen TB Test (QFT) Antigen TB Test (QFT) TB Positive Criteria 05/05/19 05/05/19 05/06/19 18:54 19:30 10:29 WBC RBC Hgb Hct MCV MCH MCHC RDW Plt Count MPV Absolute Neuts (auto) Neutrophils % Lymphocytes % Monocytes % Eosinophils % Basophils % Nucleated RBC % Platelet Estimate Platelet Comment Retic Count PT with INR INR PTT (Actin FS) Anticoagulation Therapy No Result Required. Puncture Site Right radial ABG pH 7.37 ABG pCO2 at Pt Temp 35.5 ABG pO2 at Pt Temp 108 H ABG HCO3 20.3 L ABG O2 Sat (Measured) 98.4 H ABG O2 Content 13.7 ABG Base Excess -3.9 L Chele Test Positive VBG pH POC VBG pCO2 POC VBG pO2 VBG HCO3 VBG O2 Sat (Richie) VBG Base Excess O2 Delivery Device No Result Required. Oxygen Flow Rate 2l Vent Mode No Result Required. Vent Rate No Result Required. Mechanical Rate No Result Required. Pressure Support Vent No Result Required. Sodium Potassium Chloride Carbon Dioxide Anion Gap BUN Creatinine Est GFR (CKD-EPI)AfAm Est GFR (CKD-EPI)NonAf Random Glucose Lactic Acid Calcium Magnesium Total Bilirubin AST ALT Alkaline Phosphatase Creatine Kinase Troponin I C-Reactive Protein B-Natriuretic Peptide 367.4 H Total Protein Albumin TSH 1.78 Free T3 Total T3 Urine Color Urine Appearance Urine pH Ur Specific [place] Urine Protein Urine Glucose (UA) Urine Ketones Urine Blood Urine Nitrite Urine Bilirubin Urine Urobilinogen Ur Leukocyte Esterase Phenobarbital 23 Influenza A (Rapid) Influenza B (Rapid) TB Test (QFT) Nil TB Test (QFT) Mitogen TB Test (QFT) Antigen TB Test (QFT) TB Positive Criteria 05/06/19 05/06/19 05/07/19 12:38 12:38 07:20 WBC 5.5 RBC 4.29 Hgb 10.6 L Hct 33.6 MCV 78.4 L MCH 24.7 L MCHC 31.4 L RDW 15.7 H Plt Count 245 MPV 10.3 D Absolute Neuts (auto) 2.4 Neutrophils % 43.2 D Lymphocytes % 32.8 D Monocytes % 9.3 Eosinophils % 13.5 H D Basophils % 1.2 Nucleated RBC % 0 Platelet Estimate Adequate Platelet Comment No clumping noted Retic Count PT with INR INR PTT (Actin FS) Anticoagulation Therapy Puncture Site ABG pH ABG pCO2 at Pt Temp ABG pO2 at Pt Temp ABG HCO3 ABG O2 Sat (Measured) ABG O2 Content ABG Base Excess Chele Test VBG pH POC VBG pCO2 POC VBG pO2 VBG HCO3 VBG O2 Sat (Richie) VBG Base Excess O2 Delivery Device Oxygen Flow Rate Vent Mode Vent Rate Mechanical Rate Pressure Support Vent Sodium Potassium Chloride Carbon Dioxide Anion Gap BUN Creatinine Est GFR (CKD-EPI)AfAm Est GFR (CKD-EPI)NonAf Random Glucose Lactic Acid Calcium Magnesium Total Bilirubin AST ALT Alkaline Phosphatase Creatine Kinase Troponin I C-Reactive Protein B-Natriuretic Peptide Total Protein Albumin TSH Free T3 2.5 Total T3 92.00 Urine Color Urine Appearance Urine pH Ur Specific [place] Urine Protein Urine Glucose (UA) Urine Ketones Urine Blood Urine Nitrite Urine Bilirubin Urine Urobilinogen Ur Leukocyte Esterase Phenobarbital Influenza A (Rapid) Influenza B (Rapid) TB Test (QFT) Nil 0.07 TB Test (QFT) Mitogen 8.55 TB Test (QFT) Antigen 0.09 TB Test (QFT) Negative TB Positive Criteria 05/07/19 05/08/19 05/08/19 07:20 07:20 07:20 WBC 5.1 RBC 3.92 Hgb 9.9 L Hct 30.7 L MCV 78.3 L MCH 25.2 L MCHC 32.1 RDW 15.9 H Plt Count 270 MPV 9.6 Absolute Neuts (auto) 2.1 Neutrophils % 40.8 L Lymphocytes % 32.6 Monocytes % 11.7 H Eosinophils % 13.5 H Basophils % 1.4 Nucleated RBC % 0 Platelet Estimate Normal Platelet Comment Retic Count 1.13 PT with INR INR PTT (Actin FS) Anticoagulation Therapy Puncture Site ABG pH ABG pCO2 at Pt Temp ABG pO2 at Pt Temp ABG HCO3 ABG O2 Sat (Measured) ABG O2 Content ABG Base Excess Chele Test VBG pH POC VBG pCO2 POC VBG pO2 VBG HCO3 VBG O2 Sat (Richie) VBG Base Excess O2 Delivery Device Oxygen Flow Rate Vent Mode Vent Rate Mechanical Rate Pressure Support Vent Sodium 143 140 Potassium 4.1 4.3 Chloride 106 106 Carbon Dioxide 28 27 Anion Gap 8 6 L BUN 7.6 8.5 Creatinine 0.4 L 0.3 L Est GFR (CKD-EPI)AfAm 153.14 168.34 Est GFR (CKD-EPI)NonAf 132.13 145.24 Random Glucose 90 86 Lactic Acid Calcium 9.1 9.3 Magnesium 2.1 Total Bilirubin AST ALT Alkaline Phosphatase Creatine Kinase Troponin I C-Reactive Protein B-Natriuretic Peptide Total Protein Albumin TSH Free T3 Total T3 Urine Color Urine Appearance Urine pH Ur Specific [place] Urine Protein Urine Glucose (UA) Urine Ketones Urine Blood Urine Nitrite Urine Bilirubin Urine Urobilinogen Ur Leukocyte Esterase Phenobarbital Influenza A (Rapid) Influenza B (Rapid) TB Test (QFT) Nil TB Test (QFT) Mitogen TB Test (QFT) Antigen TB Test (QFT) TB Positive Criteria Microbiology 05/04/19 11:24 Blood - Peripheral Venous Blood Culture - Final NO GROWTH AFTER 5 DAYS INCUBATION 05/04/19 11:24 Blood - Peripheral Venous Blood Culture - Final NO GROWTH AFTER 5 DAYS INCUBATION 05/06/19 14:39 Urine For Antigen Detection Legionella Antigen - Final 05/06/19 14:39 Urine For Antigen Detection Streptococcus pneumoniae Antigen (M - Final 05/04/19 09:40 Urine - Urine - Catheterized Urine Culture - Final NO GROWTH OBTAINED HOSPITAL COURSE: Date of Admission:05/04/19 Date of Discharge: 07/04/19 Minutes to complete discharge: 36 Discharge Summary Problems reviewed: Yes Reason For Visit: SEPSIS -RUL aspiration PNA with sepsis -Spastic diplegic cerebral palsy -Epilepsy -Cortical blindness -Asthma -Congenital Left hip dislocation -Constipation -Acne vulgaris -Alopecia -Cholelithiasis -Fibroadenosis of the breast -Pneumonitis -Iron Def Anemia -Gastric ulcer -Anoxic brain injury Hospital Course: 38 y/o F with PMH Epilepsy, Spastic diplegic cerebral palsy, cortical blindness , Asthma, congenital L hip dislocation, Constipation, Acne vulgaris, alopecia, cholelithiasis, fibroadenosis of the breast, Pneumonitis, Iron def anemia, Gastric ulcer, anoxic brain injury presents from [facility] with sepsis and RUL Pneumonia. Pulmonary and infectious disease were consulted. Patient was placed on zosyn with clinical improvement. She was oxygenating well prior to discharge and tolerating feeds well. She had a 2D echo with EF 605. She will be discharged back to [place] on oral augmentin for 4 more days, in stable condition. Condition: Stable - Instructions Diet, Activity, Other Instructions: You were in the hospital because of pneumonia. You need to follow up with the following doctors: Dr. Boles, primary care, 3-[address] See, pulmonology, [address] Andre, infectious diseases, 1 week You need to take Augmentin 500-125mg twice daily for 4 days If your symptoms get worse, return to the emergency department. Referrals: Rolf Andre MD [Staff Physician] - 1 Week Adrian See MD [Staff Physician] - 1 Week Disposition[facility] - Home Medications Comprehensive Discharge Medication List: Ambulatory Orders Albuterol 0.083% Nebulizer Luly [Ventolin 0.083% Nebulizer Soln -] 1 neb NEB QID 05/04/19 Albuterol 2.5/Ipratropium 0.5 [Duoneb -] 1 amp NEB BID PRN 05/04/19 Baclofen 1 tab GT BID 05/04/19 Baclofen 15 mg GT BID@1200,1700 05/04/19 Budesonide [Pulmicort 0.5 mg Nebulizer -] 1 neb NEB BID 05/04/19 Diazepam 2 mg GT TID 05/04/19 Lansoprazole [Prevacid] 30 mg GT DAILY 05/04/19 Mag Hydrox/Aluminum Hyd/Simeth [Almacone-2 Liquid] 355 ml GT HS 05/04/19 Montelukast Sodium [Singulair] 10 mg GT DAILY 05/04/19 Phenobarbital 16.2 mg GT HS 05/04/19 Phenobarbital 32.4 mg GT AM 05/04/19 Phenobarbital 129.6 mg PO HS 05/04/19 Polyethylene Glycol 3350 [Glycolax] 119 gm GT BID 05/04/19 Zinc Oxide [Desitin] 60 gm TP BID 05/04/19 Amoxicillin/Potassium Clav [Augmentin 500-125 Tablet] 1 each PO BID #8 tablet This patient is new to me today: No Emergency Visit: Yes ED Registration Date: 05/04/19 Care time: The patient presented to the Emergency Department on the above date and was hospitalized for further evaluation of their emergent condition. Critical Care patient: No - Discharge Referral Referred to [facility] No
== END 2019-05-09 17:30 | DRG 720 ==
LOC: JER 06:10 → JERBED 14:33 → J5S 21:13
PROVIDERS: ADMIT Internal Medicine; ATTEND Hospitalist
PROC: 3E0G76Z Introduction of Nutritional Substance into Upper GI, Via Natural or Artificial Opening (ICD-10-PCS; principal; 2019-05-04)
DX: A41.9 Sepsis, unspecified organism (principal); J69.0 Pneumonitis due to inhalation of food and vomit; H47.619 Cortical blindness, unspecified side of brain; R53.2 Functional quadriplegia; G93.1 Anoxic brain damage, not elsewhere classified; F73 Profound intellectual disabilities; Z93.1 Gastrostomy status; G80.1 Spastic diplegic cerebral palsy; G40.909 Epilepsy, unspecified, not intractable, without status epilepticus; J45.909 Unspecified asthma, uncomplicated; L65.9 Nonscarring hair loss, unspecified; L70.0 Acne vulgaris; D50.9 Iron deficiency anemia, unspecified; K25.9 Gastric ulcer, unspecified as acute or chronic, without hemorrhage or perforation
CPT/HCPCS: 36415; 36600; 71045-TC-FY; 71250-TC; 76705-TC; 80048; 80053; 80184; 81003; 82550; 82803; 83605; 83735; 83880; 84436; 84443; 84480; 84481; 84484; 85025; 85044; 85610; 85730; 86140; 86480; 87040; 87086; 87804; 87899; 93005; 93010; 93306-TC; 94640; 94761; 99285-25; J0131; J0475; J1644; J7030